=== PATIENT | male | born 1975 | race Caucasian/White ===

== ENCOUNTER 2019-07-28 12:40 | Inpatient (IN) ==
--- NOTE | 2019-07-28 13:06 | Emergency Department Note ---
History of Present Illness General Chief complaint: Mental Health Evaluation Stated complaint: MENTAL HEALTH EVAL Time Seen by Provider: 07/28/19 12:51 History of Present Illness Provider complaint: Mental health evaluation/suicidal ideation 44-year-old male presents emergency department with suicidal ideation. Patient states he wants to kill himself by either jumping in front of a car or jumping off of a bridge. He states he is been doing with mental health issues for many years but is gotten worse over the last few weeks. He states he has not taken any of his psychiatric medications for the last week since being discharged from the [facility] in [place]. He states there they change a lot of his medications and [place] He denies any drug or alcohol usage. He does report smoking tobacco. He notices decrease in his sleep, loss of interest in things a superiors given anthony, decreased energy, difficulties concentrating, and decreased appetite. He also reports he has been feeling guilty about how he has been feeling. Home Medications Home Medications Medication Instructions Recorded Confirmed Type No Known Home Medications 07/28/19 07/28/19 History Allergies Allergy/AdvReac Type Severity Reaction Status Date / Time No Known Allergies Allergy Unverified 07/28/19 13:20 Past Med/Surg History Medical History No pertinent past medical history Psychiatric hospitalisation Surgical History No pertinent past surgical history Social History Preferred Language: Greenlandic Communication Ability: Effective Beliefs That Will Affect Care: None Feels Safe at Home: Yes Smoking Status: Current some day smoker Tobacco Type: cigarettes ; Review of Systems A total of 10 systems reviewed and were otherwise negative Physical Exam Vital Signs Vital Signs - 24 hr 07/28/19 12:42 Temperature 36.7 C Temperature Source Oral Pulse Rate 89 Respiratory Rate 18 Respiratory Effort / Characteristics Non-Labored Spontaneous Respiratory Depth Normal Respiratory Pattern Regular Blood Pressure 137/92 Blood Pressure Mean 107 Pulse Oximetry 95 Oxygen Delivery Method Room Air Sepsis Recent Fever Within 48 Hours No Sepsis New/Unexplained Change in Mental Status No Sepsis Action Taken by Nursing No Action Required Physical Exam EYES: Conjunctivae and EOM are normal. Pupils are equal, round, and reactive to light. Right eye exhibits no discharge. Left eye exhibits no discharge. No scleral icterus. NECK: Normal range of motion. Neck supple. No JVD present. No spinous process tenderness present. No carotid bruit present. No rigidity. No tracheal deviation and normal range of motion present. No Brudzinski's sign and no Kernig's sign noted. PULM/CHEST: No respiratory distress ABD: The abdomen is soft. MUSC/SKEL: Normal range of motion. There is no peripheral edema, tenderness or deformity. LYMPH: No cervical adenopathy. NEURO: He is alert and oriented to person, place, and time. He has normal strength. No cranial nerve deficit or sensory deficit. Coordination and gait normal. GCS eye subscore is 4. GCS verbal subscore is 5. GCS motor subscore is 6. Cerebellar tests wnl. PSYCH: Positive for suicidal ideation. Course Course 1245: The patient was evaluated in room A6. A complete history and physical exam was performed. 1357: Vital signs stable. Patient medically clear at this time. Patient awaiting psychiatric evaluation and placement. Patient placed in observation. 1600: Patient admitted to 3 S. Medical Decision Making Laboratory Data Result diagrams: 07/28/19 13:07 07/28/19 13:07 Lab Results 07/28/19 07/28/19 07/28/19 Range/Units 13:02 13:02 13:07 WBC 8.55 (4.8-10.8) K/uL RBC 4.63 L (4.7-6.1) M/uL Hgb 13.5 L (14.0-18.0) g/dL Hct 39.6 L (42-52) % MCV 85.5 (80-100) fL MCH 29.2 (25-34) pg MCHC 34.1 (32-36) g/dL RDW Std Deviation 42.1 (36.4-46.3) fL RDW Coeff of Sherice 13.4 (11.5-14.5) % Plt Count 268 (130-400) K/uL MPV 9.2 (7.4-10.4) fL Immature Gran % (Auto) 0.2 % Neut % (Auto) 65.5 % Lymph % (Auto) 21.4 % [place] % (Auto) 10.6 % Eos % (Auto) 1.8 % Baso % (Auto) 0.5 % Immature Gran # (Auto) 0.02 (0.00-0.02) K/uL Neut # (Auto) 5.60 (1.4-6.5) K/uL Lymph # (Auto) 1.83 (1.2-3.4) K/uL [place] # (Auto) 0.91 H (0.11-0.59) K/uL Eos # (Auto) 0.15 (0-0.5) K/uL Baso # (Auto) 0.04 (0-0.2) K/uL Sodium (136-145) mmol/L Potassium (3.5-5.1) mmol/L Chloride (98-107) mmol/L Carbon Dioxide (21-32) mmol/L Anion Gap (3-11) BUN (7-18) mg/dl Creatinine (0.6-1.4) mg/dl Est Cr Clr Drug Dosing ml/min Est GFR ( Amer) Est GFR (Non-Af Amer) BUN/Creatinine Ratio (10-20) Glucose (70-99) mg/dl Calcium (8.5-10.1) mg/dl Total Bilirubin (0.2-1) mg/dl AST (15-37) U/L ALT (12-78) U/L Alkaline Phosphatase (45-117) U/L Total Protein (6.4-8.2) gm/dl Albumin (3.4-5.0) gm/dl Globulin (2.5-4.0) gm/dl Albumin/Globulin Ratio (0.9-2) TSH (0.300-4.500) uIu/ml Urine Color Yellow Urine Appearance Clear (Clear) Urine pH 5.5 (4.5-7.5) Ur Specific [place] 1.026 (1.000-1.030) Urine Protein Negative (Negative) Urine Glucose (UA) Negative (Negative) Urine Ketones Trace H (Negative) Urine Blood Negative (Negative) Urine Nitrite Negative (Negative) Urine Bilirubin Negative (Negative) Urine Urobilinogen Negative (Negative) Ur Leukocyte Esterase Negative (Negative) Salicylates (2.8-20) mg/dl Urine Opiates Screen Neg (Neg) Ur Methadone, Qual Neg (Neg) Acetaminophen (10-30) ug/ml Urine Barbiturates Neg (Neg) Ur Phencyclidine (PCP) Neg (Neg) U Amphetamin/Meth Scrn Neg (Neg) MDMA (Ecstasy) Screen Neg (Neg) U Benzodiazepines Scrn Neg (Neg) Ur Cocaine Metabolite Neg (Neg) U Marijuana (THC) Screen Neg (Neg) Ethyl Alcohol mg/dL (0-3) mg/dl 07/28/19 07/28/19 07/28/19 Range/Units 13:07 13:07 13:07 WBC (4.8-10.8) K/uL RBC (4.7-6.1) M/uL Hgb (14.0-18.0) g/dL Hct (42-52) % MCV (80-100) fL MCH (25-34) pg MCHC (32-36) g/dL RDW Std Deviation (36.4-46.3) fL RDW Coeff of Sherice (11.5-14.5) % Plt Count (130-400) K/uL MPV (7.4-10.4) fL Immature Gran % (Auto) % Neut % (Auto) % Lymph % (Auto) % [place] % (Auto) % Eos % (Auto) % Baso % (Auto) % Immature Gran # (Auto) (0.00-0.02) K/uL Neut # (Auto) (1.4-6.5) K/uL Lymph # (Auto) (1.2-3.4) K/uL [place] # (Auto) (0.11-0.59) K/uL Eos # (Auto) (0-0.5) K/uL Baso # (Auto) (0-0.2) K/uL Sodium 139 (136-145) mmol/L Potassium 3.9 (3.5-5.1) mmol/L Chloride 109 H (98-107) mmol/L Carbon Dioxide 25 (21-32) mmol/L Anion Gap 5.0 (3-11) BUN 22 H (7-18) mg/dl Creatinine 0.85 (0.6-1.4) mg/dl Est Cr Clr Drug Dosing 114.7 ml/min Est GFR ( Amer) 124.6 Est GFR (Non-Af Amer) 107.5 BUN/Creatinine Ratio 25.5 H (10-20) Glucose 121 H (70-99) mg/dl Calcium 8.6 (8.5-10.1) mg/dl Total Bilirubin 0.4 (0.2-1) mg/dl AST 49 H (15-37) U/L ALT 26 (12-78) U/L Alkaline Phosphatase 77 (45-117) U/L Total Protein 7.4 (6.4-8.2) gm/dl Albumin 3.8 (3.4-5.0) gm/dl Globulin 3.6 (2.5-4.0) gm/dl Albumin/Globulin Ratio 1.1 (0.9-2) TSH 0.490 (0.300-4.500) uIu/ml Urine Color Urine Appearance (Clear) Urine pH (4.5-7.5) Ur Specific [place] (1.000-1.030) Urine Protein (Negative) Urine Glucose (UA) (Negative) Urine Ketones (Negative) Urine Blood (Negative) Urine Nitrite (Negative) Urine Bilirubin (Negative) Urine Urobilinogen (Negative) Ur Leukocyte Esterase (Negative) Salicylates 4.3 (2.8-20) mg/dl Urine Opiates Screen (Neg) Ur Methadone, Qual (Neg) Acetaminophen < 2 L (10-30) ug/ml Urine Barbiturates (Neg) Ur Phencyclidine (PCP) (Neg) U Amphetamin/Meth Scrn (Neg) MDMA (Ecstasy) Screen (Neg) U Benzodiazepines Scrn (Neg) Ur Cocaine Metabolite (Neg) U Marijuana (THC) Screen (Neg) Ethyl Alcohol mg/dL < 3.0 (0-3) mg/dl MDM Narrative Observation note Indication: Psychiatric evaluation/placement Patient, with history of recently being discharged from psychiatric facility in [place] was first seen at 1245 hrs and the observation time began at 1357 hrs and was necessary in order to determine psychiatric evaluation/placement. Upon re-evaluation, 2 hours and 3 minutes of observation revealed that the patient should be admitted for inpatient psychiatric care. Disposition date and time July 28, 2019 1600. Impression & Plan Depression with suicidal ideation Discharge Plan Visit Data *Final* Discharge Date/Time: 07/28/19 16:43 Chief Complaint: Mental Health Evaluation Stated Complaint: MENTAL HEALTH EVAL ED Provider: Brad Harmon Discharge Problem: Depression with suicidal ideation Patient Disposition: Admitted As Inpatient Discharge Instructions Interventions: ED Discharge Assessment Last Done: 07/28/19 16:43
[2019-07-28 13:14] LABS: Appearance Urine Clear (Clear); Bilirubin Urine Negative (Negative); Blood Urine Negative (Negative); Color Urine Yellow; Glucose Urine UA Negative (Negative); Ketones Urine Trace (Negative); Leukocyte Esterase Urine Negative (Negative); Nitrite Urine Negative (Negative); Protein Urine Negative (Negative); Specific Gravity Urine 1.026 (1.000-1.030); Urobilinogen Urine Negative (Negative); pH Urine 5.5 (4.5-7.5)
[2019-07-28 13:21] LABS: Basophils # (auto) 0.04 K/uL (0-0.2); Basophils % (auto) 0.5 %; Eosinophils # (auto) 0.15 K/uL (0-0.5); Eosinophils % (auto) 1.8 %; Hematocrit (blood only) 39.6 % (42-52); Hemoglobin 13.5 g/dL (14.0-18.0); Immature Granulocytes # (auto) 0.02 K/uL (0.00-0.02); Immature Granulocytes % (auto) 0.2 %; Lymphocytes # (auto) 1.83 K/uL (1.2-3.4); Lymphocytes % (auto) 21.4 %; Mean Corpuscular Hemoglobin 29.2 pg (25-34); Mean Corpuscular Hgb Conc 34.1 g/dL (32-36); Mean Corpuscular Volume 85.5 fL (80-100); Mean Platelet Volume 9.2 fL (7.4-10.4); Monocytes # (auto) 0.91 K/uL (0.11-0.59); Monocytes % (auto) 10.6 %; Neutrophils % (auto) 65.5 %; Platelet Count 268 K/uL (130-400); RDW Coefficient of Variation 13.4 % (11.5-14.5); RDW Standard Deviation 42.1 fL (36.4-46.3); Red Blood Count 4.63 M/uL (4.7-6.1); White Blood Count 8.55 K/uL (4.8-10.8)
[2019-07-28 13:43] LABS: Albumin Level 3.8 gm/dl (3.4-5.0); BUN Creatinine Ratio 25.5 (10-20); Calcium 8.6 mg/dl (8.5-10.1); Creatinine Clr Calc Pharmacy 114.7 ml/min; Est GFR (African American) 124.6; Est GFR (Non-African American) 107.5; Potassium 3.9 mmol/L (3.5-5.1)
[2019-07-28 13:48] LABS: Amphetamines+Metham, Urine Neg (Neg); Barbiturates, Urine Neg (Neg); Benzodiazepine, Urine Neg (Neg); Cocaine, Urine Neg (Neg); MDMA (Ecstacy), Urine Neg (Neg); Methadone, Urine Neg (Neg); Opiate, Urine Neg (Neg); Phencyclidine, Urine Neg (Neg)
[2019-07-28 13:53] LABS: Albumin Globulin Ratio 1.1 (0.9-2); Bilirubin,Total 0.4 mg/dl (0.2-1); Globulin 3.6 gm/dl (2.5-4.0); Thyroid Stimulating Hormone 0.49 uIu/ml (0.300-4.500); Total Protein 7.4 gm/dl (6.4-8.2)
[2019-07-28 13:55] LABS: Acetaminophen < 2 ug/ml (10-30)
[2019-07-28 13:56] LABS: Salicylate 4.3 mg/dl (2.8-20)
[2019-07-28] MEDS ORDERED: MAGNESIUM HYDROXIDE SUSP 30 ML UDC PO PRN (15:05)
[2019-07-28] MEDS ORDERED: BISMUTH SUBSALICYLATE PER ML OMNICELL CHARGE PO PRN (15:05)
[2019-07-28] MEDS ORDERED: SODIUM CHLORIDE 0.65% NA SOLN 45 ML (OCEAN) PRN (15:05)
[2019-07-29] MEDS: NICOTINE POLACRILEX 2 MG GUM MT PRN ×4 (09:38→18:07)
--- NOTE | 2019-07-29 13:32 | History & Physical ---
Date of Service July 29, 2019 Impression / Recommendations Impression The patient acknowledges that, in the past, he has been given a diagnosis of bipolar disorder and, in addition, he describes trials of various mood stabilizing agents, including lithium carbonate, in the past. Currently, he presents with mixed symptoms that include delusional grandiosity (he believes that the sentient beings have specifically selected him because of his special abilities and talents), pressured speech, flight of ideas, diminished concentration, and poor sleep. His affect is also expansive and irritable, but is also quite labile and he is tearful periodically. At the same time, and somewhat paradoxically, he complains of decreased energy (something that he says is chronic), anhedonia, and apathy. (1) Bipolar 1 disorder, mixed: 07/29/2019. -The patient [facility]. -He is being observed on suicide precautions. -The patient is being encouraged to participate in individual, group, and activity therapies as a way of improving his coping strategies. -Begin Zyprexa 10 mg at bedtime. Material risks and anticipated benefits of Zyprexa, including, but not limited to metabolic syndrome and its components were reviewed with the patient and he indicated understanding. 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 However, he does freely acknowledges that he has a long history of the abuse of multiple ch emical substances. He tells us that his drug of choice is heroin, but he is also abused stimulants such as methamphetamine and cocaine, as well as marijuana, hallucinogens and others. -Today, he voices an intent to maintain abstinence from drugs of abuse, but then rationalizes his use by saying "if you were going through the things I go through you would use drugs to!" -We will provide chemical dependency education services during the hospital, and will consider this need as part of our ongoing aftercare planning. Present on Admission?: Yes (3) Suicidal ideations: 07/29/2019 -Patient reports that he has had thoughts of jumping in front of a car or jumping off a bridge as a way of ending the "torture" that he feels that he is experiencing as a function of his delusions. -Today, he expresses some ambivalence about being suicidal and now seems to be talking about it as something that he might resort to in the not too distant future if his circumstances do not improve. -At this point, inpatient psychiatric hospitalization is the least intensive and least restrictive level of care consistent with the patient's clinical safety needs. There is a past history of suicide attempts, and the patient's emotional lability coupled with the degree to which he is clearly distressed by his belief that he has been continuously harassed and exploited by sentient insect, under the control of an "evil mastermind" currently places him at imminent risk outside the safety and structure of a psychiatric hospital setting. Present on Admission?: Yes Inventory Assets Strengths: Patient states that he is willing to cooperate with treatment. There is some evidence that the patient may have responded favorably to psychiatric treatment in the past. Needs: Sustained abstinence from alcohol and other drugs. Adherence with psychiatric treatment on an outpatient basis. Improved social supports. Risk Factors Assessment Psychotic illness. Psychiatric diagnoses. History of past suicide attempts. Drug abuse. Limited support network. Male: Yes : Yes Do You Have Access To A Gun?: No Health Problems: No Mental Health Diagnoses: Yes Substance Use Disorders: Yes Previous Attempt: Yes Previous Attempt; Highly Lethal: No Previous Attempt; Planned: No Previous Attempt; Didn't Tell Anyone: Yes Family History of Suicide: No Previous Psychiatric Hospitalization: Yes Hopelessness: No Smoker: Yes Protective Factors Assessment [employer]an Beliefs: No : No Responsible for Young Children: No Employed: No Stable Relationships: No Supportive Family: No (Patient indicates that he had formerly lived with his mother and paternal grandfather, but indicates today that they were not supportive) Good Rapport with Provider: No Absence of Any Risk Factors Above: No Psychiatric History Identifying Data YAO OH is a 44-year-old M who currently is homeless and arrived in [place] by bus. He has a self-reported history of bipolar disorder, and was admitted on 07/28/19 15:05 on a 201 voluntary agreement because of psychosis and suicidal ideations. Chief Complaint " You do want to kill yourself too if you had insects biting you and sucking the life out of you!". History of Present Illness The patient is a 44-year-old male present presented to the emergency department, apparently after alighting from a long distance bus in [place] while en r oute to an unspecified destination. Reportedly, the patient's behavior on the bus had been such that other persons on the bus were concerned, and the patient was brought to the emergency department at [facility] for a psychiatric evaluation. In the emergency room, the patient reportedly expressed suicidal thoughts that included his either jumping in front of a car or jumping off a bridge. He stated that he has been dealing with mental health issues for many years and that his emotional stress has gotten worse over the last few weeks. The patient also reports that he has not taken any of his psychiatric medications for the last week since being discharged from a chemical dependency long term house known as the [facility] in [place]. The patient's claim is that he was released from the program and was "put on a bus" that he believes was [place] him [place] "[place]". He denies any recent drug or alcohol usage, but freely acknowledges a longstanding history of the abuse of a number of chemical substances, including heroin, cocaine, methamphetamine, hallucinogens, and other drugs of abuse. Patient also reports that he has, in the past, been given a diagnosis of bipolar disorder and has a history of multiple psychiatric hospitalizations, according to the patient. He does report smoking tobacco. His primary complaint is that, for the past 2 years or more he has been "infested" by sentient insects that he describes as conspiring, under the direction of a "mastermind" to infest him, bite him continuously throughout his body, and suck his blood and "life force" out of him. More specifically, of the patient says that these bugs can choose to be invisible, may originally resemble a larva, and then take a number of different forms. He says that he has never seen one, but believes that all of the insects in question are female. The patient attributes the current COVID-19 pandemic to these same malevolent insects, and that COVID-19 patients are not actually dying of pneumonia but, instead, infestation by these sentient insects who, among other things, enter the lungs of persons diagnosed with COVID-19 through the nasal cavities and block off the airways so that the victim " is a horrible ." Patient further believes that there was come until fairly recently, and insect who had taken pity on him and had tried to protect him from the other insects. He tells us that the protective insect was named "Micheline," but she and he is no longer able to enjoy her protection. The patient reports decreased sleep that he a ttributes to being continuously bitten and threatened by the insects, low energy and fatigue that he attributes to having his blood sucked by the insect (although, he also says that he has always had difficulty with fatigue and low energy; i.e., for most of his life). He also complains of poor appetite, anhedonia, apathy, and poor concentration. The patient's toxicology screen at the time of admission was negative for drugs of abuse. His reported that he has not been using drugs recently, and when asked specifically about synthetic drugs that might not appear on a tox screen, the patient assured us that he has not used any drugs at all. Past Psychiatric History Previous Psych History: The patient is a vague historian. He tells us that he has had multiple psychiatric hospitalizations, but declines to say where or when. He also declines to describe the circumstances that have led to psychiatric hospitalizations in the past. Further, he reports a history of multiple stays and chemical dependency rehabilitation programs. The patient psychiatric history is complicated by a co-occurring history of the abuse of a number of mood altering chemical substances. He says that his [id number] is heroin, but he also abuses cocaine, methamphetamines, marijuana, hallucinogens, and "just about anything you can name." As noted above, his toxicology screen at admission was negative for drugs of abuse, but he is currently presenting with fairly florid psychiatric symptoms. Current Psychiatric Diagnosis: Bipolar Outpatient Services: Patient reports previous contact the psychiatric community and notes that he has seen mental health professionals on an outpatient basis in the past, but says that he cannot recall when or where. Previous Psych Admissions: As above, the patient reports that he has had multiple psychiatric hospitalizations but either cannot or will not say when, where, or why. He also reports a history of multiple chemical dependency residential treatment programs and, in fact, indicates that he had recently been released from a residential chemical dependency long term house or half-way in [place], [place]. Do You Have Access To A Gun?: No History of Previous Suicide Attempt: Yes Describe Attempts in the Past: Overdose Past Medication Trials: The patient says that he has been on many psychiatric medications but has trouble recalling the names. He notes that he has taken Depakote, lithium, quetiapine (which he found overly sedating) and "maybe" risperidone. He does not believe that he is ever taken olanzapine, paliperidone, or ziprasidone. Past Head Trauma/Neuro History History of Concussion/Seizure: No Allergies Allergy/AdvReac Type Severity Reaction Status Date / Time No Known Allergies Allergy Unverified 07/28/19 13:20 Home Medications Home Medications Medication Instructions Recorded Confirmed Type No Known Home Medications 07/28/19 07/28/19 History Family History Family History of: Doesn't Know Family Mental Health History Comment: The patient states vaguely that his mother is "a nut job," but otherwise does not elaborate. Alcohol History Hx of Alcohol Use Over the Past 12 Months: No AUDIT Total Score: 0 Smoking Use Have You Smoked or Used Tobacco Products in the Last 30 Days: Yes tobacco type: cigarettes Smoking Status: Current some day smoker Substance History Hx of Prescription Med Misuse Over the Past 12 Months: No Hx of Over the Counter Med Misuse Over the Past 12 Months: No Hx of Inhalent Misuse Over the Past 12 Months: No Hx of Organic Substance Use Over the Past 12 Months: Yes (heroin use until 06/09 when he went to rehab) Hx of Illegal Substances/Street Drug Use Over Past 12 Months: Yes (meth use until 06/09 when he went to rehab) Problems as a Result of Past Substance Use: Other Problems as a Result of Past Substance Use Comments: loss of housing Personal History Living Arrangements: Homeless Highest Grade Completed: G.E.D. Marital Status: Number Of Children: 2 adult children with whom he has no contact. Beliefs That Will Affect Care: None Current Legal Problems: No Hx Legal Problems: Yes (Does not elaborate) Patient History Medical History No pertinent past medical history Psychiatric hospitalisation Surgical History No pertinent past surgical history Social History Preferred Language: Nepali Communication Ability: Effective Beliefs That Will Affect Care: None Feels Safe at Home: Yes Smoking Status: Current some day smoker Tobacco Type: cigarettes ; Review of Systems Review of Systems: All systems reviewed & are unremarkable except as noted in HPI & below The somatic history, review of systems, and physical examination completed by Brad Harmon of the emergency department shortly prior to admission has been reviewed and is excepted for purposes of medical clearance to the behavioral health unit. Physical Exam Psychiatric: Orientation: alert, oriented x 3 and cooperative Apperance: + disheveled Eye Contact: + fair eye contact Motor Behavior: + psychomotor agitation Speech: + pressured speech Affect: + labile affect The patient registered anger, mirth, and sadness (with tearfulness) and rapid succession. Mood: + angry mood Thought Process: + flight of ideas Thought Content: + delusions (Patient voices a fairly elaborate delusional system involving parasitosis by sentient "all female" insects that are directed by a remote "mastermind.") The patient's elaborate delusional system includes a belief that the sentient insects that are targeting him are careful to only target persons who are unlikely to be believed when they report infestation. For example, he turned to the financial services assistant and said, "they want infect you because you would do something about it and people would believe you if you told him what was happening. I think the bugs think it is funny to watch me try to get people to believe me, and they think it is interesting to see what kind of response all have when no one does." The patient reports that he has had thoughts of killing himself because he feels that he can no longer stand being harassed and tortured by the above referenced insects. He notes that he is able to contract for safety in the hospital and will cooperate with treatment as we attempt to rid him what he believes is the primary problem; i.e. that he is being consciously targeted by and tortured by insects. Estimated Intelligence: average estimated intelligence Insight: + severely impaired insight Judgement: + poor judgement Vital Signs (Past 24 Hours): Last Vital Signs Temp 36.6 C 07/29/19 06:00 Pulse 72 07/29/19 06:42 Resp 17 07/29/19 06:00 BP 136/82 07/29/19 06:42 Pulse Ox 95 07/28/19 17:40 Results & Data ([facility]) Laboratory Results Laboratory Results - last 24 hr 07/28/19 07/28/19 07/28/19 13:02 13:07 13:07 Sodium 139 Potassium 3.9 Chloride 109 H Carbon Dioxide 25 Anion Gap 5.0 BUN 22 H Creatinine 0.85 Est Cr Clr Drug Dosing 114.7 Est GFR ( Amer) 124.6 Est GFR (Non-Af Amer) 107.5 BUN/Creatinine Ratio 25.5 H Glucose 121 H Calcium 8.6 Total Bilirubin 0.4 AST 49 H ALT 26 Alkaline Phosphatase 77 Total Protein 7.4 Albumin 3.8 Globulin 3.6 Albumin/Globulin Ratio 1.1 TSH 0.490 Salicylates 4.3 Urine Opiates Screen Neg Ur Methadone, Qual Neg Acetaminophen < 2 L Urine Barbiturates Neg Ur Phencyclidine (PCP) Neg U Amphetamin/Meth Scrn Neg MDMA (Ecstasy) Screen Neg U Benzodiazepines Scrn Neg Ur Cocaine Metabolite Neg U Marijuana (THC) Screen Neg Ethyl Alcohol mg/dL 07/28/19 13:07 Sodium Potassium Chloride Carbon Dioxide Anion Gap BUN Creatinine Est Cr Clr Drug Dosing Est GFR ( Amer) Est GFR (Non-Af Amer) BUN/Creatinine Ratio Glucose Calcium Total Bilirubin AST ALT Alkaline Phosphatase Total Protein Albumin Globulin Albumin/Globulin Ratio TSH Salicylates Urine Opiates Screen Ur Methadone, Qual Acetaminophen Urine Barbiturates Ur Phencyclidine (PCP) U Amphetamin/Meth Scrn MDMA (Ecstasy) Screen U Benzodiazepines Scrn Ur Cocaine Metabolite U Marijuana (THC) Screen Ethyl Alcohol mg/dL < 3.0 Current Inpatient Medications Current Inpatient Medications: Current Inpatient Medications Acetaminophen (Tylenol) 650 mg PO Q4H PRN PRN Reason: Headache or Minor Fever Stop: 08/27/19 15:04 Al Hydrox/Mg Hydrox/Simethicone (Maalox) 30 ml PO Q4H PRN PRN Reason: GI Upset Stop: 08/27/19 15:04 Bismuth Subsalicylate (Kaopectate) 15 ml PO PRN PRN PRN Reason: Loose Stool Stop: 08/27/19 15:04 Haloperidol (Haldol) 5 mg PO Q6 PRN PRN Reason: psychosis/agitation Stop: 08/27/19 15:34 Hydroxyzine HCl (Vistaril) 25 mg PO Q4H PRN PRN Reason: Anxiety Stop: 08/27/19 15:04 Hydroxyzine HCl (Vistaril) 50 mg PO HSZ PRN PRN Reason: Insomnia Stop: 08/27/19 15:04 Magnesium Hydroxide (Milk Of Magnesia) 30 ml PO DAILY PRN PRN Reason: Constipation Stop: 08/27/19 15:04 Nicotine Polacrilex (Nicorette 2mg) 1 piece MT PRN PRN PRN Reason: nicotine cravings Stop: 08/27/19 16:28 Last Admin: 07/29/19 09:38 Dose: 1 piece Documented by: Sodium Chloride ([place] Nasal) 1 - 2 sprays NA PRN PRN PRN Reason: Nasal Dryness/Congestion Stop: 08/27/19 15:04
[2019-07-29] MEDS: haloperidoL 5 MG TAB PO PRN (18:07)
[2019-07-29] MEDS: ACETAMINOPHEN 325 MG TAB PO PRN (18:08)
[2019-07-29] MEDS ORDERED: OLANZAPINE ZYDIS 10 MG ORALLY DIS. TAB PO SCH (22:00)
[2019-07-30] MEDS: ACETAMINOPHEN 325 MG TAB PO PRN (01:58)
--- NOTE | 2019-07-30 07:08 | Psychiatric Progress Note ---
Date of Service July 30, 2019 Impression / Recommendations Impression 44-year-old male with a history of bipolar disorder and substance abuse who left his senior care house on a bus and presented with mixed symptoms and psychosis. He reports no drug use in months, but we do not have collateral information to confirm recent events/symptoms. He describes delusions involving alien insects that he believes are causing coronavirus, and states this has been going on for 2 years. He signed in voluntarily, and was started on olanzapine for both mood and psychotic symptoms. He is floridly psychotic and remains suicidal. (1) Bipolar 1 disorder, mixed: 07/29/2019. -The patient [facility]. -He is being observed on suicide precautions. -The patient is being encouraged to participate in individual, group, and activity therapies as a way of improving his coping strategies. -Begin Zyprexa 10 mg at bedtime. Material risks and anticipated benefits of Zyprexa, including, but not limited to metabolic syndrome and its components were reviewed with the patient and he indicated understanding. 07/29 -Increase olanzapine to 15 mg at bedtime, and add a as needed dose. FLP and FG ordered tomorrow for monitoring on an atypical antipsychotic. -Attempt to get collateral information, either from family or senior care house staff. Unclear if he has outpatient providers. -Continue private room due to psychosis. May attend groups as able to tolerate. -History of violence with active felony aggravated assault charges, as well as simple assault and harassment. We will attempt to coordinate with his director wholesale, as he missed a court date recently. (2) Substance abuse: 07/29/2019 -The patient is not considered to be a fully reliable law reporter. However, he does freely acknowledges that he has a long history of the abuse of multiple chemical substances. He tells us that his drug of choice is heroin, but he is also abused stimulants such as methamphetamine and cocaine, as well as marijuana, hallucinogens and others. -Today, he voices an intent to maintain abstinence from drugs of abuse, but then rationalizes his use by saying "if you were going through the things I go through you would use drugs to!" -We will provide chemical dependency education services during the hospital, and will consider this need as part of our ongoing aftercare planning. (3) Suicidal ideations: 07/29/2019 -Patient reports that he has had thoughts of jumping in front of a car or jumping off a bridge as a way of ending the "torture" that he feels that he is experiencing as a function of his delusions. -Today, he expresses some ambivalence about being suicidal and now seems to be talking about it as something that he might resort to in the not too distant future if his circumstances do not improve. -At this point, inpatient psychiatric hospitalization is the least intensive and least restrictive level of care consistent with the patient's clinical safety needs. There is a past history of suicide attempts, and the patient's emotional lability coupled with the degree to which he is clearly distressed by his belief that he has been continuously harassed and exploited by sentient insect, under the control of an "evil mastermind" currently places him at imminent risk outside the safety and structure of a psychiatric hospital setting. Inventory Assets Strengths: Patient states that he is willing to cooperate with treatment. There is some evidence that the patient may have responded favorably to psychiatric treatment in the past. Needs: Sustained abstinence from alcohol and other drugs. Adherence with psychiatric treatment on an outpatient basis. Improved social supports. Risk Factors Assessment Male: Yes : Yes Do You Have Access To A Gun?: No Health Problems: No Mental Health Diagnoses: Yes Substance Use Disorders: Yes Previous Attempt: Yes Previous Attempt; Highly Lethal: No Previous Attempt; Planned: No Previous Attempt; Didn't Tell Anyone: Yes Family History of Suicide: No Previous Psychiatric Hospitalization: Yes Hopelessness: No Smoker: Yes Protective Factors Assessment Mu-Ism Beliefs: No : No Responsible for Young Children: No Employed: No Stable Relationships: No Supportive Family: No (Patient indicates that he had formerly lived with his mother and paternal grandfather, but indicates today that they were not supportive) Good Rapport with Provider: No Absence of Any Risk Factors Above: No Interval History Identifying Information YAO HO is a 44-year-old M who currently is homeless and arrived in [place] by bus. He has a self-reported history of bipolar disorder, and was admitted on 07/28/19 15:05 on a 201 voluntary agreement because of psychosis and suicidal ideations. Chief Complaint "I'm here". Review of Systems Sleep Information Total Hours of Sleep: 3.5 Sleep Comments: Yao was awake from [id number]. he was offered a repeat of HS vistaril and asked to come to the nurses station to get it if wanted. he remained awake in bed till he came out around 0200 to get something for pain in his R shoulder. he was medicated with tylenol and accepted his repeat prn vistaril for sleep aid after stating he was not sleepy. Meal Information Percent Meal Consumed - Breakfast: 100 Percent Meal Consumed - Lunch: 50 Percent Meal Consumed - Dinner: 100 Subjective Subjective Patient was seen & assessed and interval progress reviewed with nursing and social work. Staff report he remains flordily psychotic, focused on the alien insect beings that he believes are part of a vast conspiracy that are causing the coronavirus pandemic. He states that he can feel the bugs biting him, and he leaves it is his responsibility to "make people see the truth," and is upset that "everyone thinks I am crazy." He says that he has been dealing with these bugs for 2 years, that they paulette into his skin and suck his blood. He received multiple as needed medications, including 5 mg haloperidol, multiple doses of hydroxyzine, acetaminophen, and nicotine gum, in addition to his scheduled olanzapine 10 mg at bedtime. He slept poorly overnight, only 3.5 hours. This morning he got up and ate some breakfast, but then returned to bed. He is not attending groups. On my assessment he was seen in his room, where he initially kept his face covered with a blanket, but eventually remove the blanket and sat up. He states he continues to be tortured by alien, parasitic insects that he believes come from another dimension, and that he can feel them biting him and sucking out his blood, which causes him to have poor energy. He thinks that this is why people in our country craves sugar, because parasites are sucking their blood, stating that this is happening to everyone, not just him, but other people are not aware of it. He repeatedly states that no one believes him, and everyone thinks he is crazy, which is very upsetting to him. He says "I guarantee you this virus (coronavirus) is caused by a bite, remember a couple of years ago when a ton of birds fell out of the radha? Now things are starting to make sense." He says he is from [place], [place], in [facility], and that his grandfather lives there. He was actually on his way to his grandfather's house by bus when he ended up here. He states that he went to detox in [place], from there went to inpatient rehab in [place], and then to a senior care house in [place]. He took a bus from [place] to [place] with intent to continue on to [facility], but when he arrived in [place], he states that there were no buses leaving the station. He further states that his mother, with whom he has a very poor relationship, is now staying at his grandfather's house, and so he does not want to go there because she is there. He further states his grandfather is very ill and dying. He cannot identify any other supports, stating that he has a brother, but does not know where he is, "he's a bum." He states that he has not used any drugs for months since he went to rehab. He states he is completely overwhelmed by the alien parasites, and that he cannot go on living like this, stating he would rather end his lif and continue to be tortured. He endorses suicidal thoughts with a plan to walk into traffic, but feels safe here, and states that he is getting some relief from his symptoms in the hospital, "but when I leave, it's going to be 100 times worse." He admits he was diagnosed with bipolar disorder in the past, but does not really believe he has it, stating it is probably a result of the alien insects. Physical Exam Psychiatric Orientation: alert and cooperative Apperance: appropriately dressed and + disheveled Tall thin male appearing older than stated age, long, unkempt hair and facial hair. Initially lying in bed with the blankets pulled over his face, but later sits up. Eye Contact: + poor eye contact Motor Behavior: steady gait and station and + psychomotor agitation (Pacing) Hyperverbal, loud Affect: + irritable affect and mood congruent with affect Distraught "Not good." Thought Process: + perseveration (On delusions of persecution/infestation) Thought Content: + paranoid, + delusions and + persecution Suicidal Thoughts: + reports suicidal thoughts Plan to walk into traffic, denies intent to harm self in the hospital. Homicidal Thoughts: denies homicidal thoughts Hallucinations: + tactile hallucinations (Bugs biting him) Cognition: attention grossly intact and language grossly intact Insight: + impaired insight Judgement: + impaired judgement Vital Signs (Past 24 Hours) Last Vital Signs Temp 36.3 C L 07/30/19 06:35 Pulse 64 07/30/19 06:36 Resp 18 07/30/19 06:35 BP 128/79 07/30/19 06:36 Pulse Ox 95 07/28/19 17:40 Results & Data ([facility]) Current Inpatient Medications Current Inpatient Medications: Current Inpatient Medications Acetaminophen (Tylenol) 650 mg PO Q4H PRN PRN Reason: Headache or Minor Fever Stop: 08/27/19 15:04 Last Admin: 07/30/19 01:58 Dose: 650 mg Documented by: Al Hydrox/Mg Hydrox/Simethicone (Maalox) 30 ml PO Q4H PRN PRN Reason: GI Upset Stop: 08/27/19 15:04 Bismuth Subsalicylate (Kaopectate) 15 ml PO PRN PRN PRN Reason: Loose Stool Stop: 08/27/19 15:04 Haloperidol (Haldol) 5 mg PO Q6 PRN PRN Reason: psychosis/agitation Stop: 08/27/19 15:34 Last Admin: 07/29/19 18:07 Dose: 5 mg Documented by: Hydroxyzine HCl (Vistaril) 25 mg PO Q4H PRN PRN Reason: Anxiety Stop: 08/27/19 15:04 Last Admin: 07/29/19 16:46 Dose: 25 mg Documented by: Hydroxyzine HCl (Vistaril) 50 mg PO HSZ PRN PRN Reason: Insomnia Stop: 08/27/19 15:04 Last Admin: 07/30/19 01:58 Dose: 50 mg Documented by: Magnesium Hydroxide (Milk Of Magnesia) 30 ml PO DAILY PRN PRN Reason: Constipation Stop: 08/27/19 15:04 Nicotine Polacrilex (Nicorette 2mg) 1 piece MT PRN PRN PRN Reason: nicotine cravings Stop: 08/27/19 16:28 Last Admin: 07/29/19 18:07 Dose: 1 piece Documented by: Olanzapine (Zyprexa Zydis Od) 10 mg PO HS SUZI Stop: 08/28/19 21:59 Last Admin: 07/29/19 21:17 Dose: 10 mg Documented by: Sodium Chloride (Mcgraw Nasal) 1 - 2 sprays NA PRN PRN PRN Reason: Nasal Dryness/Congestion Stop: 08/27/19 15:04 Mental Health & Subst Abuse Tx Therapist Name of Therapist: None Telephone Lineworker Name of Telephone Lineworker: None Post Discharge Appointments Primary Care Physician Name Of Family Doctor: None Contact Information Contact Information Comment: Permanent address: [address] [place] [id number]
[2019-07-30] MEDS: NICOTINE POLACRILEX 2 MG GUM MT PRN ×6 (09:03→21:22)
[2019-07-30] MEDS: OLANZAPINE ZYDIS 5 MG ORALLY DIS. TAB PO SCH (21:22)
[2019-07-31] MEDS: OLANZAPINE ZYDIS 5 MG ORALLY DIS. TAB PO PRN ×4 (03:44→19:45)
[2019-07-31] MEDS: ACETAMINOPHEN 325 MG TAB PO PRN ×2 (03:45→21:58)
--- NOTE | 2019-07-31 06:42 | Psychiatric Progress Note ---
Date of Service July 31, 2019 Impression / Recommendations Impression 44-year-old male with a history of bipolar disorder and substance abuse who left his detention house on a bus and presented with mixed symptoms and psychosis. He reports no drug use in months, but we do not have collateral information to confirm recent events/symptoms. He describes delusions involving alien insects that he believes are causing coronavirus, and states this has been going on for 2 years. He signed in voluntarily, and was started on olanzapine for both mood and psychotic symptoms. He is floridly psychotic and remains suicidal. (1) Bipolar 1 disorder, mixed: 07/29/2019 -The patient was admitted to the [facility] at [facility]. -He is being observed on suicide precautions. -The patient is being encouraged to participate in individual, group, and activity therapies as a way of improving his coping strategies. -Begin Zyprexa 10 mg at bedtime. Material risks and anticipated benefits of Zyprexa, including, but not limited to metabolic syndrome and its components were reviewed with the patient and he indicated understanding. 07/29 -Increase olanzapine to 15 mg at bedtime, and add a as needed dose. FLP and FG ordered tomorrow for monitoring on an atypical antipsychotic. -Attempt to get collateral information, either from family or detention house staff. Unclear if he has outpatient providers. -Continue private room due to psychosis. May attend groups as able to tolerate. -History of violence with active felony aggravated assault charges, as well as simple assault and harassment. We will attempt to coordinate with his softball umpire, as he missed a court date recently. 07/30 -Continue olanzapine; FG 105, FLP normal. (2) Substance abuse: 07/29/2019 -The patient is not considered to be a fully reliable marine reporter. However, he does freely acknowledges that he has a long history of the abuse of multiple chemical substances. He tells us that his drug of choice is heroin, but he is also abused stimulants such as methamphetamine and cocaine, as well as marijuana, hallucinogens and others. -Today, he voices an intent to maintain abstinence from drugs of abuse, but then rationalizes his use by saying "if you were going through the things I go through you would use drugs to!" -We will provide chemical dependency education services during the hospital, and will consider this need as part of our ongoing aftercare planning. (3) Suicidal ideations: 07/29/2019 -Patient reports that he has had thoughts of jumping in front of a car or jumping off a bridge as a way of ending the "torture" that he feels that he is experiencing as a function of his delusions. -Today, he expresses some ambivalence about being suicidal and now seems to be talking about it as something that he might resort to in the not too distant future if his circumstances do not improve. -At this point, inpatient psychiatric hospitalization is the least intensive and least restrictive level of care consistent with the patient's clinical safety needs. There is a past history of suicide attempts, and the patient's emotional lability coupled with the degree to which he is clearly distressed by his belief that he has been continuously harassed and exploited by sentient insect, under the control of an "evil mastermind" currently places him at imminent risk outside the safety and structure of a psychiatric hospital setting. Inventory Assets Strengths: Patient states that he is willing to cooperate with treatment. There is some evidence that the patient may have responded favorably to psychiatric treatment in the past. Needs: Sustained abstinence from alcohol and other drugs. Adherence with psychiatric treatment on an outpatient basis. Improved social supports. Risk Factors Assessment Male: Yes : Yes Do You Have Access To A Gun?: No Health Problems: No Mental Health Diagnoses: Yes Substance Use Disorders: Yes Previous Attempt: Yes Previous Attempt; Highly Lethal: No Previous Attempt; Planned: No Previous Attempt; Didn't Tell Anyone: Yes Family History of Suicide: No Previous Psychiatric Hospitalization: Yes Hopelessness: No Smoker: Yes Protective Factors Assessment Jainism Beliefs: No : No Responsible for Young Children: No Employed: No Stable Relationships: No Supportive Family: No (Patient indicates that he had formerly lived with his mother and paternal grandfather, but indicates today that they were not supportive) Good Rapport with Provider: No Absence of Any Risk Factors Above: No Interval History Identifying Information MAR OH is a 44-year-old M who currently is homeless and arrived in [place] by bus. He has a self-reported history of bipolar disorder, and was admitted on 07/28/19 15:05 on a 201 voluntary agreement because of psychosis and suicidal ideations. Chief Complaint " Not well". Review of Systems Sleep Information Total Hours of Sleep: 7.25 Sleep Comments: mar came out to the nurses station around 0335. stated he needed something to help him with sleep. stated he had been awake for hours then said he did not know what time it was. he had not appeared to have been awake prior to this. prn meds reviewed. he was provided with a prn dose of tylenol for #7 elbow/shoulder pain management and prn zydis for his thinking/thoughts. Meal Information Percent Meal Consumed - Breakfast: 100 Percent Meal Consumed - Lunch: 100 Percent Meal Consumed - Dinner: 100 Subjective Subjective Patient was seen & assessed and interval progress reviewed with nursing and social work. Staff report it was discovered that he has felony charges for assault on a healthcare worked from 03/2019. He showered and attended groups last evening, and was a good participant. He requested prn olanzapine overnight, in addition to his scheduled dose. On my assessment, he was seen in his room where he remains in bed with the covers pulled over his head. He reports sleep was "off and on, but good enough." He reports good appetite, and states that the groups he attended were "all right." Mood is improved and he describes it is "fine," although still does not feel safe leaving the hospital and cannot contract for safety outside of the hospital. Physical Exam Psychiatric Orientation: alert and cooperative (Partially) In bed with the covers pulled over his head Motor Behavior: no abnormal motor movements Speech, irritated tone Affect: + depressed affect and + irritable affect; + mood not congruent with affect "Fine." Thought Process: goal directed thought process Thought Content: + paranoid Suicidal Thoughts: denies suicidal thoughts Homicidal Thoughts: denies homicidal thoughts Hallucinations: no auditory hallucinations Insight: + limited insight Judgement: + limited judgement Vital Signs (Past 24 Hours) Last Vital Signs Temp 36.5 C 07/31/19 06:37 Pulse 66 07/31/19 06:38 Resp 18 07/31/19 06:37 BP 127/77 07/31/19 06:38 Pulse Ox 95 07/28/19 17:40 Results & Data ([facility]) Current Inpatient Medications Current Inpatient Medications: Current Inpatient Medications Acetaminophen (Tylenol) 650 mg PO Q4H PRN PRN Reason: Headache or Minor Fever Stop: 08/27/19 15:04 Last Admin: 07/31/19 03:45 Dose: 650 mg Documented by: Al Hydrox/Mg Hydrox/Simethicone (Maalox) 30 ml PO Q4H PRN PRN Reason: GI Upset Stop: 08/27/19 15:04 Bismuth Subsalicylate (Kaopectate) 15 ml PO PRN PRN PRN Reason: Loose Stool Stop: 08/27/19 15:04 Haloperidol (Haldol) 5 mg PO Q6 PRN PRN Reason: psychosis/agitation Stop: 08/27/19 15:34 Last Admin: 07/29/19 18:07 Dose: 5 mg Documented by: Hydroxyzine HCl (Vistaril) 25 mg PO Q4H PRN PRN Reason: Anxiety Stop: 08/27/19 15:04 Last Admin: 07/29/19 16:46 Dose: 25 mg Documented by: Hydroxyzine HCl (Vistaril) 50 mg PO HSZ PRN PRN Reason: Insomnia Stop: 08/27/19 15:04 Last Admin: 07/30/19 01:58 Dose: 50 mg Documented by: Magnesium Hydroxide (Milk Of Magnesia) 30 ml PO DAILY PRN PRN Reason: Constipation Stop: 08/27/19 15:04 Nicotine Polacrilex (Nicorette 2mg) 1 piece MT PRN PRN PRN Reason: nicotine cravings Stop: 08/27/19 16:28 Last Admin: 07/30/19 21:22 Dose: 1 piece Documented by: Olanzapine (Zyprexa Zydis Od) 15 mg PO HS SUZI Stop: 08/29/19 21:59 Last Admin: 07/30/19 21:22 Dose: 15 mg Documented by: Olanzapine (Zyprexa Zydis Od) 5 mg PO Q4H PRN PRN Reason: psychosis Stop: 08/29/19 08:44 Last Admin: 07/31/19 03:44 Dose: 5 mg Documented by: Sodium Chloride ([place]ankins Nasal) 1 - 2 sprays NA PRN PRN PRN Reason: Nasal Dryness/Congestion Stop: 08/27/19 15:04 Mental Health & Subst Abuse Tx Therapist Name of Therapist: None Lime Kiln Tender Name of Lime Kiln Tender: None Post Discharge Appointments Primary Care Physician Name Of Family Doctor: None Contact Information Contact Information Comment: Permanent [address]: [address] [place] [address]
[2019-07-31] MEDS: NICOTINE POLACRILEX 2 MG GUM MT PRN ×6 (08:39→18:34)
[2019-07-31 08:43] LABS: Glucose Fasting 105 mg/dl (70-99)
[2019-07-31 08:49] LABS: Chol HDL Ratio 3; Cholesterol 161 mg/dl (0-200); HDL Cholesterol 50 mg/dl; LDL Cholesterol Calculated 90 mg/dl; Triglycerides 104 mg/dl (0-150); VLDL Cholesterol 21 mg/dl
[2019-07-31] MEDS: haloperidoL 5 MG TAB PO PRN (13:48)
[2019-07-31] MEDS: OLANZAPINE ZYDIS 5 MG ORALLY DIS. TAB PO SCH (20:49)
[2019-08-01] MEDS: OLANZAPINE ZYDIS 5 MG ORALLY DIS. TAB PO PRN (00:29)
[2019-08-01] MEDS: ACETAMINOPHEN 325 MG TAB PO PRN ×2 (03:38→22:56)
--- NOTE | 2019-08-01 07:21 | Psychiatric Progress Note ---
Date of Service August 01, 2019 Impression / Recommendations Impression 44-year-old male with a history of bipolar disorder and substance abuse who [facility] due to treatment noncompliance, got on a bus with a plan to go to [facility], but presented here en route with mixed symptoms and psychosis. He reports no drug use in months, but we do not have collateral information to confirm recent events/symptoms. He describes delusions involving alien insects that he believes are causing coronavirus, and states this has been going on for 2 years. He signed in voluntarily, and was started on olanzapine for both mood and psychotic symptoms. Today he is r equesting retrial of an SSRI to target anxiety. He is less focused on his delusions, and plans to stay with his grandfather in the [place] area after discharge, but has no transportation there and no current outpatient treatment. He will need to work with the social problems specialist to apply for medical assistance so that he can be referred for outpatient treatment, and we will continue to encourage a family meeting, which he is now refusing. Inpatient treatment is medically necessary due to the severity of his psychotic symptoms and risk of harm to himself as well as inability to care for himself if discharged prematurely. (1) Bipolar 1 disorder, mixed: 07/29/2019 -The patient was admitted to the locked inpatient psychiatric unit at [facility]. -He is being observed on suicide precautions. -The patient is being encouraged to participate in individual, group, and activity therapies as a way of improving his coping strategies. -Begin Zyprexa 10 mg at bedtime. Material risks and anticipated benefits of Zyprexa, including, but not limited to metabolic syndrome and its components were reviewed with the patient and he indicated understanding. 07/29 -Increase olanzapine to 15 mg at bedtime, and add a as needed dose. FLP and FG ordered tomorrow for monitoring on an atypical antipsychotic. -Attempt to get collateral information, either from family or [facility] staff. Unclear if he has outpatient providers. -Continue private room due to psychosis. May attend groups as able to tolerate. -History of violence with active felony aggravated assault charges, as well as simple assault and harassment. We will attempt to coordinate with his contract consultant, as he missed a court date recently. 07/30 -Continue olanzapine; FG 105, FLP normal. 07/31 -Increase olanzapine to 20 mg at bedtime and continue as needed's. Continue to work on healthy coping skills. -Initiate sertraline 25 mg daily to target mood and anxiety symptoms, and increase to 50 mg daily tomorrow if well tolerated. Monitor for mood destabilization. -Patient continues to refuse a family meeting with his grandfather, but states he plans to go there at discharge, although has no transportation. Encouraged him to start considering his supports (indicates he has some friends in the [place] area). -Patient will need referral for outpatient therapy and psychiatric care (indicates plan to return to [facility]). 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 However, he does freely acknowledges that he has a long history of the abuse of multiple chemical substances. He tells us that his drug of choice is heroin, but he is also abused stimulants such as methamphetamine and cocaine, as well as marijuana, hallucinogens and others. -Today, he voices an intent to maintain abstinence from drugs of abuse, but then rationalizes his use by saying "if you were going through the things I go through you would use drugs to!" -We will provide chemical dependency education services during the hospital, and will consider this need as part of our ongoing aftercare planning. (3) Suicidal ideations: 07/29/2019 -Patient reports that he has had thoughts of jumping in front of a car or jumping off a bridge as a way of ending the "torture" that he feels that he is experiencing as a function of his delusions. -Today, he expresses some ambivalence about being suicidal and now seems to be talking about it as something that he might resort to in the not too distant future if his circumstances do not improve. -At this point, inpatient psychiatric hospitalization is the least intensive and least restrictive level of care consistent with the patient's clinical safety needs. There is a past history of suicide attempts, and the patient's emotional lability coupled with the degree to which he is clearly distressed by his belief that he has been continuously harassed and exploited by sentient insect, under the control of an "evil mastermind" currently places him at imminent risk outside the safety and structure of a psychiatric hospital setting. Inventory Assets Strengths: Patient states that he is willing to cooperate with treatment. There is some evidence that the patient may have responded favorably to psychiatric treatment in the past. Needs: Sustained abstinence from alcohol and other drugs. Adherence with psychiatric treatment on an outpatient basis. Improved social supports. Risk Factors Assessment Male: Yes : Yes Do You Have Access To A Gun?: No Health Problems: No Mental Health Diagnoses: Yes Substance Use Disorders: Yes Previous Attempt: Yes Previous Attempt; Highly Lethal: No Previous Attempt; Planned: No Previous Attempt; Didn't Tell Anyone: Yes Family History of Suicide: No Previous Psychiatric Hospitalization: Yes Hopelessness: No Smoker: Yes Protective Factors Assessment Yazidi Beliefs: No : No Responsible for Young Children: No Employed: No Stable Relationships: No Supportive Family: No (Patient indicates that he had formerly lived with his mother and paternal grandfather, but indicates today that they were not supportive) Good Rapport with Provider: No Absence of Any Risk Factors Above: No Interval History Identifying Information YAO OH is a 44-year-old M who currently is homeless and arrived in [place] by bus. He has a self-reported history of bipolar disorder, and was admitted on 07/28/19 15:05 on a 201 voluntary agreement because of psychosis and suicidal ideations. Chief Complaint " Okay". Review of Systems Sleep Information Total Hours of Sleep: 1.75 Sleep Comments: difficult time sleeping mostly related to physical discomfort- shoulders ached him. medicated for sleep/thought with zydis and tylenol for pain Meal Information Percent Meal Consumed - Breakfast: 100 Percent Meal Consumed - Lunch: 100 Percent Meal Consumed - Dinner: 100 Subjective Subjective Patient was seen & assessed and interval progress reviewed with treatment team. Staff report he requested multiple prns yesterday stating he "didn't feel right," and got 3 doses of olanzapine 2/5mg in addition to his scheduled 10m dose, as well as haloperidol prn. He was pleasant with staff, and sporadically attends groups. He was able to contact his grandfather in [facility], and states he wants to go there, but has no way to get there (buses aren't running). On my assessment, he states that he slept poorly overnight, but reports he was sleeping off and on during the day yesterday, and will try to stay awake today. Mood is "dunno, kind of depressed, always kind of depressed though, and anxious." He states he has been on many different medications for mood and anxiety, and is unsure what has worked and what has not. He wants medication f or anxiety, but states he does not want "a blood pressure medication," stating that he was prescribed several blood pressure medications at the [facility], and this is actually why he was kicked out, as he refused to continue taking them, which was a violation of the treatment agreement. He reports opiate withdrawal, stating he stopped Suboxone about 8 days ago when he left the [facility], and is experiencing sweats, chills, runny nose, and muscle soreness. He denies suicidal and homicidal thoughts, and states he is still concerned about the parasites he believes have infested everyone and are causing coronavirus, stating "it's the same, it'll never change," but has not been as focused on it nor bringing it up in discussion as readily. He says he knows that no one believes him, and says his goal is to "prove it to everyone that this is true." He says it is not bothering him as much right now, "but that is because I'm here, we'll see what happens when I leave." He says he spoke to his grandfather and can still go and stay with him and [facility], but does not know how he will get there. Medication Trials Patient initially unable to relay previous medication trials, but today states they include: Escitalopram 10 mg, unsure if it helped Venlafaxine XR -discontinuation symptoms Sertraline -effective and well-tolerated Paroxetine -well-tolerated [place] Depakote Propanolol -did not like it, blurry vision Clonidine Physical Exam Psychiatric Orientation: alert and cooperative Apperance: appropriately dressed; + did not appear stated age Thin male appearing older than his stated age, casually dressed in blue jeans and a worn out T-shirt. Chin length hair, full facial hair, adequate hygiene, limited grooming. Eye Contact: + fair eye contact Motor Behavior: steady gait and station and no abnormal motor movements Speech: normal rate/rhythm/volume of speech Affect: + depressed affect, + anxious affect and mood congruent with affect Mood: + depressed mood and + anxious mood Thought Process: goal directed thought process Thought Content: + paranoid, + delusions and + persecution Suicidal Thoughts: denies suicidal thoughts Homicidal Thoughts: denies homicidal thoughts Hallucinations: + tactile hallucinations (Bugs biting him); no auditory hallucinations and no visual hallucinations Cognition: recent memory grossly intact, attention grossly intact and language grossly intact Insight: + impaired insight Judgement: + impaired judgement Vital Signs (Past 24 Hours) Last Vital Signs Temp 36.7 C 08/01/19 06:50 Pulse 66 08/01/19 06:51 Resp 18 08/01/19 06:50 BP 155/73 H 08/01/19 06:51 Pulse Ox 95 07/28/19 17:40 Results & Data ([facility]) Laboratory Results Laboratory Results - last 24 hr 07/31/19 08:18 Fasting Glucose 105 H Triglycerides 104 Cholesterol 161 LDL Cholesterol, Calc 90 VLDL Cholesterol, Calc 21 HDL Cholesterol 50 Cholesterol/HDL Ratio 3 Current Inpatient Medications Current Inpatient Medications: Current Inpatient Medications Acetaminophen (Tylenol) 650 mg PO Q4H PRN PRN Reason: Headache or Minor Fever Stop: 08/27/19 15:04 Last Admin: 08/01/19 03:38 Dose: 650 mg Documented by: Al Hydrox/Mg Hydrox/Simethicone (Maalox) 30 ml PO Q4H PRN PRN Reason: GI Upset Stop: 08/27/19 15:04 Bismuth Subsalicylate (Kaopectate) 15 ml PO PRN PRN PRN Reason: Loose Stool Stop: 08/27/19 15:04 Haloperidol (Haldol) 5 mg PO Q6 PRN PRN Reason: psychosis/agitation Stop: 08/27/19 15:34 Last Admin: 07/31/19 13:48 Dose: 5 mg Documented by: Hydroxyzine HCl (Vistaril) 25 mg PO Q4H PRN PRN Reason: Anxiety Stop: 08/27/19 15:04 Last Admin: 07/31/19 18:34 Dose: 25 mg Documented by: Hydroxyzine HCl (Vistaril) 50 mg PO HSZ PRN PRN Reason: Insomnia Stop: 08/27/19 15:04 Last Admin: 07/31/19 23:04 Dose: 50 mg Documented by: Magnesium Hydroxide (Milk Of Magnesia) 30 ml PO DAILY PRN PRN Reason: Constipation Stop: 08/27/19 15:04 Nicotine Polacrilex (Nicorette 2mg) 1 piece MT PRN PRN PRN Reason: nicotine cravings Stop: 08/27/19 16:28 Last Admin: 07/31/19 18:34 Dose: 1 piece Documented by: Olanzapine (Zyprexa Zydis Od) 15 mg PO HS SUZI Stop: 08/29/19 21:59 Last Admin: 07/31/19 20:49 Dose: 15 mg Documented by: Olanzapine (Zyprexa Zydis Od) 5 mg PO Q4H PRN PRN Reason: psychosis Stop: 08/29/19 08:44 Last Admin: 08/01/19 00:29 Dose: 5 mg Documented by: Sodium Chloride ([place] Nasal) 1 - 2 sprays NA PRN PRN PRN Reason: Nasal Dryness/Congestion Stop: 08/27/19 15:04 Mental Health & Subst Abuse Tx Therapist Name of Therapist: None Grain Drier Name of Grain Drier: None Post Discharge Appointments Primary Care Physician Name Of Family Doctor: None Contact Information Contact Information Comment: P[address] [address] [place] [id number]
[2019-08-01] MEDS: SERTRALINE HCL 50 MG TABLET PO SCH (10:07)
[2019-08-01] MEDS: OLANZapine 5 MG TABLET PO PRN (10:31)
[2019-08-01] MEDS: NICOTINE POLACRILEX 2 MG GUM MT PRN ×4 (11:26→19:07)
[2019-08-01] MEDS: haloperidoL 5 MG TAB PO PRN ×2 (13:15→21:01)
[2019-08-01] MEDS: OLANZapine 20 MG TABLET PO SCH (20:58)
[2019-08-02] MEDS: cloNIDine HCL 0.1 MG TAB PO PRN ×4 (07:40→17:37)
[2019-08-02] MEDS: SERTRALINE HCL 50 MG TABLET PO SCH (07:41)
--- NOTE | 2019-08-02 08:37 | Psychiatric Progress Note ---
Date of Service August 02, 2019 Impression / Recommendations Impression 44-year-old male with a history of bipolar disorder and substance abuse who was kicked out of his skilled nursing house due to treatment noncompliance, got on a bus with a plan to go to [facility], but presented here en route with mixed symptoms and psychosis. Pt initially reported no drug use in months, but is now endorsing abuse of Suboxone about 2 days prior to his admission. He describes delusions involving alien insects that he believes are causing coronavirus, and states this has been going on for 2 years. He signed in voluntarily, and was started on olanzapine for both mood and psychotic symptoms. Pt did request and was started on sertraline to target anxiety and trazodone to target sleep. He is less focused on his delusions, and plans to stay with his grandfather in the [place] area after discharge, but has no transportation there and no current outpatient treatment. He will need to work with the director social to apply for medical assistance so that he can be referred for outpatient treatment, and we will continue to encourage a family meeting, which he continues to decline refusing. Inpatient treatment is medically necessary due to the severity of his psychotic symptoms and risk of harm to himself as well as inability to care for himself if discharged prematurely. (1) Bipolar 1 disorder, mixed: 07/29/2019 -The patient was admitted to the locked inpatient psychiatric unit at [facility]. -He is being observed on suicide precautions. -The patient is being encouraged to participate in individual, group, and activity therapies as a way of improving his coping strategies. -Begin Zyprexa 10 mg at bedtime. Material risks and anticipated benefits of Zyprexa, including, but not limited to metabolic syndrome and its components were reviewed with the patient and he indicated understanding. 07/29 -Increase olanzapine to 15 mg at bedtime, and add a as needed dose. FLP and FG ordered tomorrow for monitoring on an atypical antipsychotic. -Attempt to get collateral information, either from family or skilled nursing house staff. Unclear if he has outpatient providers. -Continue private room due to psychosis. May attend groups as able to tolerate. -History of violence with active felony aggravated assault charges, as well as simple assault and harassment. We will attempt to coordinate with his business attorney, as he missed a court date recently. 07/30 -Continue olanzapine; FG 105, FLP normal. 07/31 -Increase olanzapine to 20 mg at bedtime and continue as needed's. Continue to work on healthy coping skills. -Initiate sertraline 25 mg daily to target mood and anxiety symptoms, and increase to 50 mg daily tomorrow if well tolerated. Monitor for mood destabilization. -Patient continues to refuse a family meeting with his grandfather, but states he plans to go there at discharge, although has no transportation. Encouraged him to start considering his supports (indicates he has some friends in the [place] area). -Patient will need referral for outpatient therapy and psychiatric care (indicates plan to return to [facility]). 08/01 - Continue olanzapine 20mg at bedtime; patient requesting trazodone for sleep as well - will order 150mg qHS (pt previously taking as much as 250mg). 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 However, he does freely acknowledges that he has a long history of the abuse of multiple chemical substances. He tells us that his drug of choice is heroin, but he is also abused stimulants such as methamphetamine and cocaine, as well as marijuana, hallucinogens and others. -Today, he voices an intent to maintain abstinence from drugs of abuse, but then rationalizes his use by saying "if you were going through the things I go through you would use drugs to!" -We will provide chemical dependency education services during the hospital, and will consider this need as part of our ongoing aftercare planning. (3) Suicidal ideations: 07/29/2019 -Patient reports that he has had thoughts of jumping in front of a car or jumping off a bridge as a way of ending the "torture" that he feels that he is experiencing as a function of his delusions. -Today, he expresses some ambivalence about being suicidal and now seems to be talking about it as something that he might resort to in the not too distant future if his circumstances do not improve. -At this point, inpatient psychiatric hospitalization is the least intensive and least restrictive level of care consistent with the patient's clinical safety needs. There is a past history of suicide attempts, and the patient's emotional lability coupled with the degree to which he is clearly distressed by his belief that he has been continuously harassed and exploited by sentient insect, under the control of an "evil mastermind" currently places him at immin ent risk outside the safety and structure of a psychiatric hospital setting. 08/01 - Pt denies SI today, but reports worsening mood with withdrawal symptoms Inventory Assets Strengths: Patient states that he is willing to cooperate with treatment. There is some evidence that the patient may have responded favorably to psychiatric treatment in the past. Needs: Sustained abstinence from alcohol and other drugs. Adherence with psychiatric treatment on an outpatient basis. Improved social supports. Risk Factors Assessment Male: Yes : Yes Do You Have Access To A Gun?: No Health Problems: No Mental Health Diagnoses: Yes Substance Use Disorders: Yes Previous Attempt: Yes Previous Attempt; Highly Lethal: No Previous Attempt; Planned: No Previous Attempt; Didn't Tell Anyone: Yes Family History of Suicide: No Previous Psychiatric Hospitalization: Yes Hopelessness: No Smoker: Yes Protective Factors Assessment Catholic Beliefs: No : No Responsible for Young Children: No Employed: No Stable Relationships: No Supportive Family: No (Patient indicates that he had formerly lived with his mother and paternal grandfather, but indicates today that they were not supportive) Good Rapport with Provider: No Absence of Any Risk Factors Above: No Interval History Identifying Information YAO OH is a 44-year-old M who currently is homeless and arrived in [place] by bus. He has a self-reported history of bipolar disorder, and was admitted on 07/28/19 15:05 on a 201 voluntary agreement because of psychosis and suicidal ideations. Chief Complaint "Oh, I'm feeling a bit worse today, physically." Review of Systems Notes Constitutional: reports restlessness Cardiovascular: denied Respiratory: denied Gastrointestinal: reports nausea Neurological: denied Psychiatric: denies symptoms other than stated above Total of at least 10 systems reviewed, pertinent positives as above and in HPI. Sleep Information Total Hours of Sleep: 4.5 Sleep Comments: pt given vistaril per rn. pt appeared to be asleep @0130 and thereafter. pt on q-15 minute checks Meal Information Percent Meal Consumed - Breakfast: 100 Percent Meal Consumed - Lunch: 100 Percent Meal Consumed - Dinner: 100 Nutrition Comment: per meal record Medication Trials Patient initially unable to relay previous medication trials, but today states they include: Escitalopram 10 mg, unsure if it helped Venlafaxine XR -discontinuation symptoms Sertraline -effective and well-tolerated Paroxetine -well-tolerated Hasty Depakote Propanolol -did not like it, blurry vision Clonidine Subjective Subjective Patient was seen & assessed and interval progress reviewed with nursing and social work. Staff report the patient has been reporting increased physical symptoms suggestive of withdrawal. Pt has been participating in group programming, and is verbalizing a plan to live with his grandfather in the [place] area after discharge - though continues to report he has not transpo rtation. Pt was seen today to assess progress since admission. Pt's case reviewed with nursing, as patient was reporting nausea, restlessness, and anxiety. This provider did order ondansetron and benztropine for the patient - as he has been receiving prn doses of both olanzapine and haloperidol. Pt received these medications just prior to his encounter with this provider. Pt states that his current combination of symptoms seems most consistent with withdrawal, as he admits he has felt similarly in the past. Pt reports he has taken several hot showers today but "other than medications, I can't do much more than wait it out." Pt denies SI presently, though does state "in general, life sucks. There isn't much to live for, but I came here instead of acting on it." Pt continues to report plan to live with his grandfather. Pt states his own car is in the [place] area, and both his mother and brother do not have cars or local driver's licenses. While patient admits he does not yet feel safe to leave the hospital, we will also need to work on transportation options. When asked about any bizarre or paranoid thoughts, patient hesitates and then states "well, gees....I've talked about this a lot...I guess, I guess I'll just say no." Documentation for staff suggests patient has admitted to ongoing paranoia and delusions, but has been somewhat less preoccupied with them. Pt denies other needs or concerns today. Records from [facility] Received and Reviewed - Treatment Summary - Patient's presence in treatment was reported to have been 3 appointments, with 2 no-shows. Pt was treated at this facility from -07/25/2019 and was reportedly discharge Against Facility Advice. It was reported that patient refused aftercare and was "not open" to obtaining information regarding community resources. Pt did not identify a discharge location. Progress was reported as "insufficient" Pt did reportedly participate in groups during his s tony, and relapse did not occur while he was engaged in the program. Prognosis was estimated to be poor. Medication Trials . Physical Exam Psychiatric Orientation: alert, oriented x 3 and cooperative Apperance: appropriately dressed (casually, in jeans and a t-shirt) and appropriately groomed (recently showered) Eye Contact: good eye contact Motor Behavior: steady gait and station and no abnormal motor movements Speech: normal rate/rhythm/volume of speech Affect: + blunted affect (not appearing overtly depressed) Thought Process: goal directed thought process and thought association intact Thought Content: no delusions (patient does not verbalize any delusional thought content during encounter ) and no hopelessness Suicidal Thoughts: denies suicidal thoughts and denies suicidal intent Homicidal Thoughts: denies homicidal thoughts Hallucinations: + tactile hallucinations (pt did not mention specifically, but admits to restlessness); no auditory hallucinations and no visual hallucinations Cognition: attention grossly intact and language grossly intact Insight: + fair insight Judgement: + fair judgement Vital Signs (Past 24 Hours) Last Vital Signs Temp 36.7 C 08/02/19 06:51 Pulse 60 08/02/19 06:51 Resp 18 08/02/19 06:51 BP 174/86 H 08/02/19 06:51 Pulse Ox 95 07/28/19 17:40 Results & Data ([facility]) Current Inpatient Medications Current Inpatient Medications: Current Inpatient Medications Acetaminophen (Tylenol) 650 mg PO Q4H PRN PRN Reason: Headache or Minor Fever Stop: 08/27/19 15:04 Last Admin: 08/01/19 22:56 Dose: 650 mg Documented by: Al Hydrox/Mg Hydrox/Simethicone (Maalox) 30 ml PO Q4H PRN PRN Reason: GI Upset Stop: 08/27/19 15:04 Bismuth Subsalicylate (Kaopectate) 15 ml PO PRN PRN PRN Reason: Loose Stool Stop: 08/27/19 15:04 Clonidine HCl (Catapres) 0.1 mg PO Q2H PRN PRN Reason: For any 2 symptoms Stop: 08/31/19 09:13 Last Admin: 08/02/19 07:40 Dose: 0.1 mg Documented by: Haloperidol (Haldol) 5 mg PO Q6 PRN PRN Reason: psychosis/agitation Stop: 08/27/19 15:34 Last Admin: 08/01/19 21:01 Dose: 5 mg Documented by: Hydroxyzine HCl (Vistaril) 25 mg PO Q4H PRN PRN Reason: Anxiety Stop: 08/27/19 15:04 Last Admin: 08/01/19 18:04 Dose: 25 mg Documented by: Hydroxyzine HCl (Vistaril) 50 mg PO HSZ PRN PRN Reason: Insomnia Stop: 08/27/19 15:04 Last Admin: 08/01/19 22:54 Dose: 50 mg Documented by: Magnesium Hydroxide (Milk Of Magnesia) 30 ml PO DAILY PRN PRN Reason: Constipation Stop: 08/27/19 15:04 Nicotine Polacrilex (Nicorette 2mg) 1 piece MT PRN PRN PRN Reason: nicotine cravings Stop: 08/27/19 16:28 Last Admin: 08/01/19 19:07 Dose: 1 piece Documented by: Olanzapine (Zyprexa) 20 mg PO HS SUZI Stop: 08/31/19 21:59 Last Admin: 08/01/19 20:58 Dose: 20 mg Documented by: Olanzapine (Zyprexa) 5 mg PO QAM PRN PRN Reason: psychosis Stop: 08/31/19 08:59 Last Admin: 08/01/19 10:31 Dose: 5 mg Documented by: Sertraline HCl (Zoloft) 50 mg PO QAM SUZI Stop: 08/31/19 09:14 Last Admin: 08/02/19 07:41 Dose: 50 mg Documented by: Sodium Chloride ([place] Nasal) 1 - 2 sprays NA PRN PRN PRN Reason: Nasal Dryness/Congestion Stop: 08/27/19 15:04 Mental Health & Subst Abuse Tx Therapist Name of Therapist: None Grinder Operator Automatic Name of Grinder Operator Automatic: None Post Discharge Appointments Primary Care Physician Name Of Family Doctor: None Contact Information Contact Information Comment: Permanent [address]: [address] [place] [address] [place] [id number]
[2019-08-02] MEDS: BENZTROPINE MESYLATE 0.5 MG TAB PO PRN (11:28)
[2019-08-02] MEDS: IBUPROFEN 600 MG TAB PO PRN (11:29)
[2019-08-02] MEDS: ONDANSETRON 4 MG OD TAB PO PRN ×2 (11:30→16:29)
[2019-08-02] MEDS: NICOTINE POLACRILEX 2 MG GUM MT PRN ×2 (13:48→17:37)
[2019-08-02] MEDS: haloperidoL 5 MG TAB PO PRN (14:57)
[2019-08-02] MEDS: OLANZapine 20 MG TABLET PO SCH (20:49)
[2019-08-02] MEDS: TRAZODONE HCL 50 MG TAB PO PRN (20:56)
[2019-08-03] MEDS: cloNIDine HCL 0.1 MG TAB PO PRN ×4 (07:41→18:17)
[2019-08-03] MEDS: SERTRALINE HCL 50 MG TABLET PO SCH (07:42)
[2019-08-03] MEDS: ONDANSETRON 4 MG OD TAB PO PRN ×2 (07:43→17:08)
[2019-08-03] MEDS: NICOTINE POLACRILEX 2 MG GUM MT PRN ×4 (08:40→20:39)
--- NOTE | 2019-08-03 08:53 | Psychiatric Progress Note ---
Date of Service August 03, 2019 Impression / Recommendations Impression 44-year-old male with a history of bipolar disorder and substance abuse who was discharged from his detention house due to treatment noncompliance, got on a bus with a plan to go to [facility], but presented here en route with mixed symptoms and psychosis. Pt initially reported no drug use in months, but is now endorsing abuse of Suboxone about 2 days prior to his admission. He is endorsing opiate withdrawal symptoms, which she is receiving numerous as needed's daily. He describes delusions involving alien insects that he believes are causing coronavirus, and states this has been going on for 2 years. He signed in voluntarily, and was started on olanzapine for both mood and psychotic symptoms, sertraline for anxiety, and trazodone for sleep. He is less focused on his delusions, and plans to stay with his grandfather in the [place] area after discharge, but has no transportation there and no current outpatient treatment. He is declining a family meeting, and there is likely more to the story that he is not sharing. Inpatient treatment remains medically necessary due to the severity of his psychotic symptoms and risk of harm to himself as well as inability to care for himself if discharged prematurely. (1) Bipolar 1 disorder, mixed: 07/29/2019 -The patient was admitted to the locked inpatient psychiatric unit at [facility]. -He is being observed on suicide precautions. -The patient is being encouraged to participate in individual, group, and activity therapies as a way of improving his coping strategies. -Begin Zyprexa 10 mg at bedtime. Material risks and anticipated benefits of Zyprexa, including, but not limited to metabolic syndrome and its components were reviewed with the patient and he indicated understanding. 07/29 -Increase olanzapine to 15 mg at bedtime, and add a as needed dose. FLP and FG ordered tomorrow for monitoring on an atypical antipsychotic. -Attempt to get collateral information, either from family or detention house staff. Unclear if he has outpatient providers. -Continue private room due to psychosis. May attend groups as able to tolerate. -History of violence with active felony aggravated assault charges, as well as simple assault and harassment. We will attempt to coordinate with his family law attorney, as he missed a court date recently. 07/30 -Continue olanzapine; FG 105, FLP normal. 07/31 -Increase olanzapine to 20 mg at bedtime and continue as needed's. Continue to work on healthy coping skills. -Initiate sertraline 25 mg daily to target mood and anxiety symptoms, and increase to 50 mg daily tomorrow if well tolerated. Monitor for mood destabilization. -Patient continues to refuse a family meeting with his grandfather, but states he plans to go there at discharge, although has no transportation. Encouraged him to start considering his supports (indicates he has some friends in the [place] area). -Patient will need referral for outpatient therapy and psychiatric care (indicates plan to return to [facility]). 08/01 - Continue olanzapine 20mg at bedtime; patient requesting trazodone for sleep as well - will order 150mg qHS (pt previously taking as much as 250mg). - Continue sertraline 50mg qAM - Pt continues to state his supports are unable to participate in a family meeting, as grandfather is reportedly sick - Attempting to coordinate aftercare in the [place] area 08/02 -Continue current medications and plan. (2) Suicidal ideations: 07/29/2019 -Patient reports that he has had thoughts of jumping in front of a car or jumping off a bridge as a way of ending the "torture" that he feels that he is experiencing as a function of his delusions. -Today, he expresses some ambivalence about being suicidal and now seems to be talking about it as something that he might resort to in the not too distant future if his circumstances do not improve. -At this point, inpatient psychiatric hospitalization is the least intensive and least restrictive level of care consistent with the patient's clinical safety needs. There is a past history of suicide attempts, and the patient's emotional lability coupled with the degree to which he is clearly distressed by his belief that he has been continuously harassed and exploited by sentient insect, under the control of an "evil mastermind" currently places him at imminent risk outside the safety and structure of a psychiatric hospital setting. 08/01 - Pt denies SI today, but reports worsening mood with withdrawal symptoms (3) Opiate withdrawal: Continue clonidine protocol, and use of Kaopectate, acetaminophen, milk of magnesia, ibuprofen, and ondansetron as needed. 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 However, he does freely acknowledges that he has a long history of the abuse of multiple chemical substances. He tells us that his drug of choice is heroin, but he is also abused stimulants such as methamphetamine and cocaine, as well as marijuana, hallucinogens and others. -Today, he voices an intent to maintain abstinence from drugs of abuse, but then rationalizes his use by saying "if you were going through the things I go through you would use drugs to!" -We will provide chemical dependency education services during the hospital, and will consider this need as part of our ongoing aftercare planning. (5) Opiate abuse, continuous: History of heroin use, states he was prescribed Suboxone while living in [place], from a doctor in [place], but ran out of it after he was discharged from his [place] due to treatment noncompliance. We have requested records from the [facility] to clarify past treatment and diagnoses. Inventory Assets Strengths: Patient states that he is willing to cooperate with treatment. There is some evidence that the patient may have responded favorably to psychiatric treatment in the past. Needs: Sustained abstinence from alcohol and other drugs. Adherence with psychiatric treatment on an outpatient basis. Improved social supports. Risk Factors Assessment Male: Yes : Yes Do You Have Access To A Gun?: No Health Problems: No Mental Health Diagnoses: Yes Substance Use Disorders: Yes Previous Attempt: Yes Previous Attempt; Highly Lethal: No Previous Attempt; Planned: No Previous Attempt; Didn't Tell Anyone: Yes Family History of Suicide: No Previous Psychiatric Hospitalization: Yes Hopelessness: No Smoker: Yes Protective Factors Assessment Mu-Ism Beliefs: No : No Responsible for Young Children: No Employed: No Stable Relationships: No Supportive Family: No (Patient indicates that he had formerly lived with his mother and paternal grandfather, but indicates today that they were not supportive) Good Rapport with Provider: No Absence of Any Risk Factors Above: No Interval History Identifying Information YAO OH is a 44-year-old M who currently is homeless and arrived in [place] by bus. He has a self-reported history of bipolar disorder, and was admitted on 07/28/19 15:05 on a 201 voluntary agreement because of psychosis and suicidal ideations. Chief Complaint "Better than yesterday". Review of Systems Sleep Information Total Hours of Sleep: 9.5 Sleep Comments: pt given trazodone per rn. pt appeared to be asleep for 2.5 hrs during evening shift. pt on q-15 minute checks Meal Information Percent Meal Consumed - Breakfast: 50 Percent Meal Consumed - Lunch: 50 Percent Meal Consumed - Dinner: 80 Nutrition Comment: pt. reports emesis after eating 50% of lunch Medication Trials . Subjective Subjective Patient was seen & assessed and interval progress reviewed with treatment team. Staff report he is reporting a variety of physical symptoms of withdrawal, including sweats, chills, muscle aches, restlessness, nausea, vomiting, and getting numerous prns. On my assessment, he states that he is feeling better, as his withdrawal symptoms have lessened, although he continues to have rhinorrhea, muscle aches, sweats, and flatulence. Nausea is improved, and he was able to eat breakfast. He slept much better last night, and mood is improved today. He denies suicidal thoughts, and is working on discharge plans. Social work has been in contact with [facility], and are attempting to arrange outpatient treatment for him, as he was seen there before and requested to return. Physical Exam Psychiatric Orientation: alert and cooperative Apperance: appropriately dressed and appeared stated age Mildly disheveled and unkempt, but adequate hygiene and grooming. Seated in no acute distress on the edge of his bed. Eye Contact: + fair eye contact Motor Behavior: steady gait and station and no abnormal motor movements Speech: normal rate/rhythm/volume of speech Affect: + anxious affect (Mildly) "Better." Thought Process: goal directed thought process Patient does not spontaneously voice delusions about parasite infestation Suicidal Thoughts: denies suicidal thoughts Homicidal Thoughts: denies homicidal thoughts Hallucinations: no auditory hallucinations Cognition: recent memory grossly intact, attention grossly intact and language grossly intact Insight: + limited insight Judgement: + limited judgement Vital Signs (Past 24 Hours) Last Vital Signs Temp 37.1 C 08/03/19 06:39 Pulse 102 H 08/03/19 06:39 Resp 18 08/03/19 06:39 BP 146/78 H 08/03/19 06:39 Pulse Ox 95 07/28/19 17:40 Results & Data ([facility]) Current Inpatient Medications Current Inpatient Medications: Current Inpatient Medications Acetaminophen (Tylenol) 650 mg PO Q4H PRN PRN Reason: Headache or Minor Fever Stop: 08/27/19 15:04 Last Admin: 08/01/19 22:56 Dose: 650 mg Documented by: Al Hydrox/Mg Hydrox/Simethicone (Maalox) 30 ml PO Q4H PRN PRN Reason: GI Upset Stop: 08/27/19 15:04 Benztropine Mesylate (Cogentin) 0.5 mg PO Q4H PRN PRN Reason: Anesthesia Stop: 09/01/19 11:04 Last Admin: 08/02/19 11:28 Dose: 0.5 mg Documented by: Bismuth Subsalicylate (Kaopectate) 15 ml PO PRN PRN PRN Reason: Loose Stool Stop: 08/27/19 15:04 Clonidine HCl (Catapres) 0.1 mg PO Q2H PRN PRN Reason: For any 2 symptoms Stop: 08/31/19 09:13 Last Admin: 08/03/19 07:41 Dose: 0.1 mg Documented by: Haloperidol (Haldol) 5 mg PO Q6 PRN PRN Reason: psychosis/agitation Stop: 08/27/19 15:34 Last Admin: 08/02/19 14:57 Dose: 5 mg Documented by: Hydroxyzine HCl (Vistaril) 25 mg PO Q4H PRN PRN Reason: Anxiety Stop: 08/27/19 15:04 Last Admin: 08/01/19 18:04 Dose: 25 mg Documented by: Hydroxyzine HCl (Vistaril) 50 mg PO HSZ PRN PRN Reason: Insomnia Stop: 08/27/19 15:04 Last Admin: 08/01/19 22:54 Dose: 50 mg Documented by: Ibuprofen (Motrin) 600 mg PO Q6H PRN PRN Reason: Pain Stop: 09/01/19 10:47 Last Admin: 08/02/19 11:29 Dose: 600 mg Documented by: Magnesium Hydroxide (Milk Of Magnesia) 30 ml PO DAILY PRN PRN Reason: Constipation Stop: 08/27/19 15:04 Nicotine Polacrilex (Nicorette 2mg) 1 piece MT PRN PRN PRN Reason: nicotine cravings Stop: 08/27/19 16:28 Last Admin: 08/03/19 08:40 Dose: 1 piece Documented by: Olanzapine (Zyprexa) 20 mg PO HS SUZI Stop: 08/31/19 21:59 Last Admin: 08/02/19 20:49 Dose: 20 mg Documented by: Olanzapine (Zyprexa) 5 mg PO QAM PRN PRN Reason: psychosis Stop: 08/31/19 08:59 Last Admin: 08/01/19 10:31 Dose: 5 mg Documented by: Ondansetron HCl (Zofran Odt) 4 mg PO Q6H PRN PRN Reason: Nausea Stop: 09/01/19 10:47 Last Admin: 08/03/19 07:43 Dose: 4 mg Documented by: Sertraline HCl (Zoloft) 50 mg PO QAM SUZI Stop: 08/31/19 09:14 Last Admin: 08/03/19 07:42 Dose: 50 mg Documented by: Sodium Chloride (Wilkinson Nasal) 1 - 2 sprays NA PRN PRN PRN Reason: Nasal Dryness/Congestion Stop: 08/27/19 15:04 Trazodone HCl (Desyrel) 150 mg PO HS PRN PRN Reason: insomnia Stop: 09/01/19 21:59 Last Admin: 08/02/19 20:56 Dose: 150 mg Documented by: Mental Health & Subst Abuse Tx Therapist Name of Therapist: None Supervisor Brake Repair Name of Supervisor Brake Repair: None Post Discharge Appointments Primary Care Physician Name Of Family Doctor: None Contact Information Contact Information Comment: Permanent [address]: [address] [place] [address]
[2019-08-03] MEDS: OLANZapine 5 MG TABLET PO PRN (09:30)
[2019-08-03] MEDS: IBUPROFEN 600 MG TAB PO PRN (12:20)
[2019-08-03] MEDS: BENZTROPINE MESYLATE 0.5 MG TAB PO PRN ×2 (12:21→23:35)
[2019-08-03] MEDS: haloperidoL 5 MG TAB PO PRN ×2 (12:21→22:06)
[2019-08-03] MEDS: OLANZapine 20 MG TABLET PO SCH (20:40)
[2019-08-03] MEDS: TRAZODONE HCL 50 MG TAB PO PRN (20:48)
[2019-08-03] MEDS: ACETAMINOPHEN 325 MG TAB PO PRN (20:48)
[2019-08-03] MEDS: ALUMINUM/MAGNESIUM SUSP 30 ML UDC PO PRN (22:06)
[2019-08-04] MEDS: SERTRALINE HCL 50 MG TABLET PO SCH (08:45)
[2019-08-04] MEDS: NICOTINE POLACRILEX 2 MG GUM MT PRN ×7 (10:01→21:23)
[2019-08-04] MEDS: OLANZapine 5 MG TABLET PO PRN (10:01)
--- NOTE | 2019-08-04 11:45 | Psychiatric Progress Note ---
Date of Service August 04, 2019 Impression / Recommendations Impression 44-year-old male with a history of bipolar disorder and substance abuse who was discharged from his shelter house due to treatment noncompliance, got on a bus with a plan to go to [facility], but presented here en route with mixed symptoms and psychosis. Pt initially reported no drug use in months, but is now endorsing abuse of Suboxone about 2 days prior to his admission. He is endorsing opiate withdrawal symptoms, which she is receiving numerous as needed's daily. He describes delusions involving alien insects that he believes are causing coronavirus, and states this has been going on for 2 years. He signed in voluntarily, and was started on olanzapine for both mood and psychotic symptoms, sertraline for anxiety, and trazodone for sleep. He is less focused on his delusions, and plans to stay with his grandfather in the [place] area after discharge. He is declining a family meeting, and there is likely more to the story that he is not sharing. Although inpatient treatment remains medica lly necessary due to risk of harm to himself given refusal to allow staff to coordinate with outpatient supports and limited ability to secure outpatient psychiatric providers - his symptoms are not likely to improve significantly with a prolonged hospitalization given his resistance to treatment recommendations. He is denying SI and is able to verbalize a discharge plan he feels comfortable with. Pt was made aware of plan for discharge tomorrow morning, and is in support of this. A planned discharge will give our staff the opportunity to coordinate with outpatient psychiatric providers in the [facility], who reportedly only take referrals on [id number]. (1) Bipolar 1 disorder, mixed: 07/29/2019 -The patient was admitted to the locked inpatient psychiatric unit at [facility]. -He is being observed on suicide precautions. -The patient is being encouraged to participate in individual, group, and activity therapies as a way of improving his coping strategies. -Begin Zyprexa 10 mg at bedtime. Material risks and anticipated benefits of Zyprexa, including, but not limited to metabolic syndrome and its components were reviewed with the patient and he indicated understanding. 07/29 -Increase olanzapine to 15 mg at bedtime, and add a as needed dose. FLP and FG ordered tomorrow for monitoring on an atypical antipsychotic. -Attempt to get collateral information, either from family or shelter house staff. Unclear if he has outpatient providers. -Continue private room due to psychosis. May attend groups as able to tolerate. -History of violence with active felony aggravated assault charges, as well as simple assault and harassment. We will attempt to coordinate with his environmental attorney, as he missed a court date recently. 07/30 -Continue olanzapine; FG 105, FLP normal. 07/31 -Increase olanzapine to 20 mg at bedtime and continue as needed's. Continue to work on healthy coping skills. -Initiate sertraline 25 mg daily to target mood and anxiety symptoms, and increase to 50 mg daily tomorrow if well tolerated. Monitor for mood destabilization. -Patient continues to refuse a family meeting with his grandfather, but states he plans to go there at discharge, although has no transportation. Encouraged him to start considering his supports (indicates he has some friends in the [place] area). -Patient will need referral for outpatient therapy and psychiatric care (indicates plan to return to [facility]). 08/01 - Continue olanzapine 20mg at bedtime; patient requesting trazodone for sleep as well - will order 150mg qHS (pt previously taking as much as 250mg). - Continue sertraline 50mg qAM - Pt continues to state his supports are unable to participate in a family meeting, as grandfather is reportedly sick - Attempting to coordinate aftercare in the [place] area 08/02 -Continue current medications and plan. 08/03 - Continue current treatment plan - patient continues to decline family meeting - Continues to verbalize delusional thoughts regarding parasites; however, they do not appear to be directing his decision-making - Anticipate planned discharge tomorrow morning, which will allow our social work team to coordinate with possible outpatient psychiatric offices to reach out to patient for aftercare. (2) Suicidal ideations: 07/29/2019 -Patient reports that he has had thoughts of jumping in front of a car or jumping off a bridge as a way of ending the "torture" that he feels that he is experiencing as a function of his delusions. -Today, he expresses some ambivalence about being suicidal and now seems to be talking about it as something that he might resort to in the not too distant future if his circumstances do not improve. -At this point, inpatient psychiatric hospitalization is the least intensive and least restrictive level of care consistent with the patient's clinical safety needs. There is a past history of suicide attempts, and the patient's emotional lability coupled with the degree to which he is clearly distressed by his belief that he has been continuously harassed and exploited by sentient insect, under the control of an "evil mastermind" currently places him at imminent risk outside the safety and structure of a psychiatric hospital setting. 08/01 - Pt denies SI today, but reports worsening mood with withdrawal symptoms 08/03 - Continues to report resolution of SI; reporting improvement of withdrawal symptoms - Pt denies any safety concerns related to his anticipated discharge tomorrow (3) Opiate withdrawal: Continue clonidine protocol, and use of Kaopectate, acetaminophen, milk of magnesia, ibuprofen, and ondansetron as needed. (4) Substance abuse: 07/29/2019 -The patient is not considered to be a fully reliable field reporter. However, he does freely acknowledges that he has a long history of the abuse of multiple chemical substances. He tells us that his drug of choice is heroin, but he is also abused stimulants such as methamphetamine and cocaine, as well as marijuana, hallucinogens and others. -Today, he voices an intent to maintain abstinence from drugs of abuse, but then rationalizes his use by saying "if you were going through the things I go through you would use drugs to!" -We will provide chemical dependency education services during the hospital, and will consider this need as part of our ongoing aftercare planning. (5) Opiate abuse, continuous: History of heroin use, states he was prescribed Suboxone while living in [place], from a doctor in [place], but ran out of it after he was discharged from his [facility] due to treatment noncompliance. We have requested records from [facility] to clarify past treatment and diagnoses. Inventory Assets Strengths: Patient states that he is willing to cooperate with treatment. There is some evidence that the patient may have responded favorably to psychiatric treatment in the past. Needs: Sustained abstinence from alcohol and other drugs. Adherence with psychiatric treatment on an outpatient basis. Improved social supports. Risk Factors Assessment Male: Yes : Yes Do You Have Access To A Gun?: No Health Problems: No Mental Health Diagnoses: Yes Substance Use Disorders: Yes Previous Attempt: Yes Previous Attempt; Highly Lethal: No Previous Attempt; Planned: No Previous Attempt; Didn't Tell Anyone: Yes Family History of Suicide: No Previous Psychiatric Hospitalization: Yes Hopelessness: No Smoker: Yes Protective Factors Assessment Mandaen Beliefs: No : No Responsible for Young Children: No Employed: No Stable Relationships: No Supportive Family: No (Patient indicates that he had formerly lived with his mother and paternal grandfather, but indicates today that they were not supportive) Good Rapport with Provider: No Absence of Any Risk Factors Above: No Interval History Identifying Information YAO OH is a 44-year-old M who currently is homeless and arrived in [place] by bus. He has a self-reported history of bipolar disorder, and was admitted on 07/28/19 15:05 on a 201 voluntary agreement because of psychosis and suicidal ideations. Chief Complaint "Hey, what did you want to talk about?" Review of Systems Notes Constitutional: reports restlessness he perceives to be related to withdrawal Cardiovascular: denied Respiratory: denied Gastrointestinal: denied Neurological: denied Psychiatric: denies symptoms other than stated above Total of at least 10 systems reviewed, pertinent positives as above and in HPI. Sleep Information Total Hours of Sleep: 5 Sleep Comments: pt given vistaril per rn. pt appered to sleep @0100 and thereafter. pt on q-15 minute checks Meal Information Percent Meal Consumed - Breakfast: 100 Percent Meal Consumed - Lunch: 100 Percent Meal Consumed - Dinner: 100 Nutrition Comment: pt. reports emesis after eating 50% of lunch Medication Trials . Subjective Subjective Patient was seen & assessed and interval progress reviewed with nursing and social work. Staff report the patient has continued to participate in group programming. Numerous resources have been explored in attempts to offer transportation assistance to the patient, without a positive result. Patient has indicated to staff he will figure out transportation on his own and that this is not a concern for him. While patient has reported some ongoing delusions, he is far less preoccupied with these beliefs and they no longer appear to be directing his behavior. Pt was seen today to assess progress since admission. He reports improvement in withdrawal symptoms, though did admit frustration as he was unable to receive a dose of clonidine earlier in the day due to BP below parameters. Pt is continuing to report intermittent anxiety. He states that he is agreeable with discharge tomorrow, and when asked about transportation/aftercare he states "I'll figure it out one way or another, I'm not worried about it." Pt did state, "I'm still having the same problem, but no one's going to believe me." He did indicate that he was referring to his parasites, but did admit that he was not as preoccupied by this and did not feel that it would impact his ability to keep himself safe. Pt denied suicidal and homicidal ideation, and reported feeling comfortable with aftercare arrangements. He did indicate that he is aware that, per outpatient psychiatric office in [place], referral for outpatient treatment can only occur on [id number]. Pt denied other needs or concerns today. Medication Trials . Physical Exam Psychiatric Orientation: alert, oriented x 3 and cooperative (superficially) Apperance: appropriately dressed, + disheveled (hygiene appears adequate; hair is long and unkempt) and appeared stated age Eye Contact: + fair eye contact Motor Behavior: steady gait and station and no abnormal motor movements Speech: normal rate/rhythm/volume of speech Affect: + blunted affect Mood: no depressed mood ("things are fine") Thought Process: goal directed thought process and clear/coherent thought process Thought Content: + delusions (continues to believe he has parasites on him, though less focused on this) Suicidal Thoughts: denies suicidal thoughts Homicidal Thoughts: denies homicidal thoughts Hallucinations: + tactile hallucinations (continues to report that he has parasites; likely strongly fixed delusions); no auditory hallucinations and no visual hallucinations Cognition: attention grossly intact and language grossly intact Insight: + fair insight Judgement: + fair judgement Vital Signs (Past 24 Hours) Last Vital Signs Temp 36.7 C 08/04/19 06:42 Pulse 88 08/04/19 09:53 Resp 18 08/04/19 06:42 BP 108/68 08/04/19 09:53 Pulse Ox 95 07/28/19 17:40 Results & Data ([facility]) Current Inpatient Medications Current Inpatient Medications: Current Inpatient Medications Acetaminophen (Tylenol) 650 mg PO Q4H PRN PRN Reason: Headache or Minor Fever Stop: 08/27/19 15:04 Last Admin: 08/03/19 20:48 Dose: 650 mg Documented by: Al Hydrox/Mg Hydrox/Simethicone (Maalox) 30 ml PO Q4H PRN PRN Reason: GI Upset Stop: 08/27/19 15:04 Last Admin: 08/03/19 22:06 Dose: 30 ml Documented by: Benztropine Mesylate (Cogentin) 0.5 mg PO Q4H PRN PRN Reason: Anesthesia Stop: 09/01/19 11:04 Last Admin: 08/03/19 23:35 Dose: 0.5 mg Documented by: Bismuth Subsalicylate (Kaopectate) 15 ml PO PRN PRN PRN Reason: Loose Stool Stop: 08/27/19 15:04 Clonidine HCl (Catapres) 0.1 mg PO Q2H PRN PRN Reason: For any 2 symptoms Stop: 08/31/19 09:13 Last Admin: 08/03/19 18:17 Dose: 0.1 mg Documented by: Haloperidol (Haldol) 5 mg PO Q6 PRN PRN Reason: psychosis/agitation Stop: 08/27/19 15:34 Last Admin: 08/03/19 22:06 Dose: 5 mg Documented by: Hydroxyzine HCl (Vistaril) 25 mg PO Q4H PRN PRN Reason: Anxiety Stop: 08/27/19 15:04 Last Admin: 08/01/19 18:04 Dose: 25 mg Documented by: Hydroxyzine HCl (Vistaril) 50 mg PO HSZ PRN PRN Reason: Insomnia Stop: 08/27/19 15:04 Last Admin: 08/03/19 23:33 Dose: 50 mg Documented by: Ibuprofen (Motrin) 600 mg PO Q6H PRN PRN Reason: Pain Stop: 09/01/19 10:47 Last Admin: 08/03/19 12:20 Dose: 600 mg Documented by: Magnesium Hydroxide (Milk Of Magnesia) 30 ml PO DAILY PRN PRN Reason: Constipation Stop: 08/27/19 15:04 Nicotine Polacrilex (Nicorette 2mg) 1 piece MT PRN PRN PRN Reason: nicotine cravings Stop: 08/27/19 16:28 Last Admin: 08/04/19 11:25 Dose: 1 piece Documented by: Olanzapine (Zyprexa) 20 mg PO HS SUZI Stop: 08/31/19 21:59 Last Admin: 08/03/19 20:40 Dose: 20 mg Documented by: Olanzapine (Zyprexa) 5 mg PO QAM PRN PRN Reason: psychosis Stop: 08/31/19 08:59 Last Admin: 08/04/19 10:01 Dose: 5 mg Documented by: Ondansetron HCl (Zofran Odt) 4 mg PO Q6H PRN PRN Reason: Nausea Stop: 09/01/19 10:47 Last Admin: 08/03/19 17:08 Dose: 4 mg Documented by: Sertraline HCl (Zoloft) 50 mg PO QAM SUZI Stop: 08/31/19 09:14 Last Admin: 08/04/19 08:45 Dose: 50 mg Documented by: Sodium Chloride (Gosper Nasal) 1 - 2 sprays NA PRN PRN PRN Reason: Nasal Dryness/Congestion Stop: 08/27/19 15:04 Trazodone HCl (Desyrel) 150 mg PO HS PRN PRN Reason: insomnia Stop: 09/01/19 21:59 Last Admin: 08/03/19 20:48 Dose: 150 mg Documented by: Mental Health & Subst Abuse Tx Therapist Name of Therapist: None Commissioning Manager Name of Commissioning Manager: None Post Discharge Appointments Primary Care Physician Name Of Family Doctor: None Contact Information Discharge Address: [address] [place] [id number] Contact Information Comment: Permanent address: [address] [place] [id number]
[2019-08-04] MEDS: haloperidoL 5 MG TAB PO PRN (12:51)
[2019-08-04] MEDS: cloNIDine HCL 0.1 MG TAB PO PRN ×2 (18:05→23:40)
[2019-08-04] MEDS: ONDANSETRON 4 MG OD TAB PO PRN (18:47)
[2019-08-04] MEDS: OLANZapine 20 MG TABLET PO SCH (21:22)
[2019-08-04] MEDS: TRAZODONE HCL 50 MG TAB PO PRN (21:23)
[2019-08-04] MEDS: ALUMINUM/MAGNESIUM SUSP 30 ML UDC PO PRN (21:24)
[2019-08-05] MEDS: SERTRALINE HCL 50 MG TABLET PO SCH (08:43)
--- NOTE | 2019-08-05 10:50 | Discharge Summary ---
Date of Service August 05, 2019 History of Present Illness The patient is a 44-year-old male present presented to the emergency department, apparently after alighting from a long distance bus in [place] while en route to an unspecified destination. Reportedly, the patient's behavior on the bus had been such that other persons on the bus were concerned, and the patient was brought to the emergency department at [facility] for a psychiatric evaluation. In the emergency room, the patient reportedly expressed suicidal thoughts that included his either jumping in front of a car or jumping off a bridge. He stated that he has been dealing with mental health issues for many years and that his emotional stress has gotten worse over the last few weeks. The patient also reports that he has not taken any of his psychiatric medications for the last week since being discharged from a chemical dependency [facility] house known as the [facility] in [place]. The patient's claim is that he was released from the program and was "put on a bus" that he believes was destined [place] take him [place] "the [place]". He denies any recent drug or alcohol usage, but freely acknowledges a longstanding history of the abuse of a number of chemical substances, including heroin, cocaine, methamphetamine, hallucinogens, and other drugs of abuse. Patient also reports that he has, in the past, been given a diagnosis of bipolar disorder and has a history of multiple psychiatric hospitalizations, according to the patient. He does report smoking tobacco. His primary complaint is that, for the past 2 years or more he has been "infested" by sentient insects that he describes as conspiring, under the direction of a "mastermind" to infest him, bite him continuously throughout his body, and suck his blood and "life force" out of him. More specifically, of the patient says that these bugs can choose to be invisible, may originally resemble a larva, and then take a number of different forms. He says that he has never seen one, but believes that all of the insects in question are female. The patient attributes the current COVID-19 pandemic to these same malevolent insects, and that COVID-19 patients are not actually dying of pneumonia but, instead, infestation by these sentient insects who, among other things, enter the lungs of persons diagnosed with COVID-19 through the nasal cavities and block off the airways so that the victim " is a horrible ." Patient further believes that there was come until fairly recently, and insect who had taken pity on him and had tried to protect him from the other insects. He tells us that the protective insect was named "Micheline," but she and he is no longer able to enjoy her protection. The patient reports decreased sleep that he attributes to being continuously bitten and threatened by the insects, low energy and fatigue that he attributes to having his blood sucked by the insect (although, he also says that he has always had difficulty with fatigue and low energy; i.e., for most of his life). He also complains of poor appetite, anhedonia, apathy, and poor concentration. The patient's toxicology screen at the time of admission was negative for drugs of abuse. His reported that he has not been using drugs recently, and when asked specifically about synthetic drugs that might not appear on a tox screen, the patient assured us that he has not used any drugs at all. Physical Exam Psychiatric Orientation: alert, oriented x 3 and cooperative Apperance: appropriately dressed and appropriately groomed Eye Contact: + fair eye contact Motor Behavior: steady gait and station and no abnormal motor movements Speech: normal rate/rhythm/volume of speech Affect: euthymic affect "It's good. A lot better." Thought Process: goal directed thought process Thought Content: reality based without delusions Suicidal Thoughts: denies suicidal thoughts Homicidal Thoughts: denies homicidal thoughts Hallucinations: no auditory hallucinations Cognition: recent memory grossly intact, remote memory grossly intact, attention grossly intact and language grossly intact Estimated Intelligence: average estimated intelligence Insight: + fair insight Judgement: + fair judgement Vital Signs (Past 24 Hours) Last Vital Signs Temp 37 C 08/05/19 09:45 Pulse 87 08/05/19 09:45 Resp 18 08/05/19 09:45 BP 169/89 H 08/05/19 09:45 Pulse Ox 95 08/05/19 09:45 Principal Diagnosis Bipolar 1 Disorder Psychiatric Data During the course of hospitalization the patient was offered various modalities of psychiatric treatment and education. Although at first somewhat reluctant, he participated in individual, group, and activity therapies where he focused on drug abstinence strategies, and individual coping strategies. He was also started on psychiatric medications, namely olanzapine and sertraline. He was also placed on an opioid withdrawal protocol, and by the day of discharge this was considered resolved. (He continued to occasionally mention "withdrawal symptoms" on the day prior to discharge, and received as needed clonidine, but the patient, on those occasions, did not appear to be in any distress and his blood pressure had returned to normal.) His dose of olanzapine was titrated to olanzapine 20 mg by mouth at bedtime, and he was also placed on sertraline 50 mg for depression and anxiety. The patient exhibited fairly florid psychotic features with a fairly elaborate paranoid delusional system, but the the patient's delusional thought content began to be less intrusive on medication and eventually he did not mention them spontaneously, and there was no persistent evidence that these believes were continuing to influence his behavior or decision making processes. He also reported that he was not experiencing any perceptual disturbances such as auditory hallucinations. He was generally pleasant and cooperative in the milieu, although sometimes he appeared to be drug seeking and often requested as needed medications. The suicidal thoughts that he presented with also resolved, and by discharge the patient was consistently and convincingly denies suicidal thoughts and was also focused on his future. During his discharge evaluation, he ask that the staff be thanked for all the help they gave him during his stay. He said that he was looking forward to returning to [place], [place] where he plans to live with his elderly grandfather. The patient's mother is also temporarily staying with the grandfather who has recently had a number of serious health problems. The patient acknowledges that he and his mother do not always get along, but he spontaneously states that he recognizes that it will be in the best interest of his own health and his grandfather's health if he works hard to avoid conflict with his mother. He also notes that his mother has indicated that once he is settled back in [facility] she will return to her own home, located elsewhere in [place]. Day of Discharge Assessment On the day of discharge the patient was found to be appropriately dressed and groomed. He was fully cooperative with the discharge assessment and was generally affable and pleasant. His speech was delivered at a normal rate and volume, and was also spontaneous. There was no gait disturbance noted. The patient described his mood as being "good," and "much better." His affect was fairly bright. The patient's thought processes demonstrated tight associations. His thought content was devoid of any identified delusional content, and he spoke about his love and respect for his grandfather and notes that he is happy about the opportunity to be able to help care for the elderly man, within the context of the degree to which his grandfather has helped him in the past. The patient reports that he is not experiencing any "voices" and does not appear to be responding to internal stimuli. He convincingly reports that he is having no further thoughts of suicide, and is able to discuss his safety plan for community reentry. He tells us that he has a recent history of going to emergency rooms if he is having suicidal or other self destructive thoughts. He notes that he feels that olanzapine at bedtime is helping him in several ways. Specifically, he reports that it is helping him sleep and he also says that he knows that it is helping him to "think more clearly." Further, he indicates th at he has been tolerating sertraline well, and believes that it has also helped improve his mood. He expresses full intent to adhere with his medications on an outpatient basis and inquires regarding how we will help him secure a supply of his medications pending his upcoming outpatient appointment. Transition of Care Transition Of Care Record: was reviewed with the patient Advance Directives Advance Directives Information Provided: Yes Advance Directives: No Mental Health Advance Directive: No Advance Directives on File: No Living Will: No Power of Scrap Handler: No Advance Directives Reason:: Declines as Mental Health Visit. Risk Factors Assessment Male. History of previous suicide attempts. Psychiatric diagnosis. History of psychosis. Extensive history of drug abuse. These factors are mitigated by the patient's reported commitment to psychiatric treatment, his insight into his need for treatment, and the fact that he has support in the community, in the form of his grandfather. Male: Yes : Yes Do You Have Access To A Gun?: No Health Problems: No Mental Health Diagnoses: Yes Substance Use Disorders: Yes Previous Attempt: Yes Previous Attempt; Highly Lethal: No Previous Attempt; Planned: No Previous Attempt; Didn't Tell Anyone: Yes Family History of Suicide: No Previous Psychiatric Hospitalization: Yes Hopelessness: No Smoker: Yes Protective Factors Assessment Mormonism Beliefs: No : No Responsible for Young Children: No Employed: No Stable Relationships: No Supportive Family: No (Patient indicates that he had formerly lived with his mother and paternal grandfather, but indicates today that they were not supportive) Good Rapport with Provider: No Absence of Any Risk Factors Above: No Tobacco Cessation at Discharge Tobacco Cessation Medication Prescribed at Discharge: Offered & Prescribed Antipsychotic Medications The patient is being treated for a psychotic illness. Olanzapine is also used as a mood stabilizer in this case. Total Time Total Time Spent: Greater Than 30 Minutes Total Time Includes: Examination of the patient, Discharge Planning, Medication Reconciliation and Communication with other providers Discharge Data Lab Results 07/28/19 07/28/19 07/28/19 13:02 13:02 13:07 WBC 8.55 RBC 4.63 L Hgb 13.5 L Hct 39.6 L MCV 85.5 MCH 29.2 MCHC 34.1 RDW Std Deviation 42.1 RDW Coeff of Sherice 13.4 Plt Count 268 MPV 9.2 Immature Gran % (Auto) 0.2 Neut % (Auto) 65.5 Lymph % (Auto) 21.4 Madison % (Auto) 10.6 Eos % (Auto) 1.8 Baso % (Auto) 0.5 Immature Gran # (Auto) 0.02 Neut # (Auto) 5.60 Lymph # (Auto) 1.83 Madison # (Auto) 0.91 H Eos # (Auto) 0.15 Baso # (Auto) 0.04 Sodium Potassium Chloride Carbon Dioxide Anion Gap BUN Creatinine Est Cr Clr Drug Dosing Est GFR ( Amer) Est GFR (Non-Af Amer) BUN/Creatinine Ratio Glucose Fasting Glucose Calcium Total Bilirubin AST ALT Alkaline Phosphatase Total Protein Albumin Globulin Albumin/Globulin Ratio Triglycerides Cholesterol LDL Cholesterol, Calc VLDL Cholesterol, Calc HDL Cholesterol Cholesterol/HDL Ratio TSH Urine Color Yellow Urine Appearance Clear Urine pH 5.5 Ur Specific [place] 1.026 Urine Protein Negative Urine Glucose (UA) Negative Urine Ketones Trace H Urine Blood Negative Urine Nitrite Negative Urine Bilirubin Negative Urine Urobilinogen Negative Ur Leukocyte Esterase Negative Salicylates Urine Opiates Screen Neg Ur Methadone, Qual Neg Acetaminophen Urine Barbiturates Neg Ur Phencyclidine (PCP) Neg U Amphetamin/Meth Scrn Neg MDMA (Ecstasy) Screen Neg U Benzodiazepines Scrn Neg Ur Cocaine Metabolite Neg U Marijuana (THC) Screen Neg Ethyl Alcohol mg/dL 07/28/19 07/28/19 07/28/19 13:07 13:07 13:07 WBC RBC Hgb Hct MCV MCH MCHC RDW Std Deviation RDW Coeff of Sherice Plt Count MPV Immature Gran % (Auto) Neut % (Auto) Lymph % (Auto) Madison % (Auto) Eos % (Auto) Baso % (Auto) Immature Gran # (Auto) Neut # (Auto) Lymph # (Auto) Madison # (Auto) Eos # (Auto) Baso # (Auto) Sodium 139 Potassium 3.9 Chloride 109 H Carbon Dioxide 25 Anion Gap 5.0 BUN 22 H Creatinine 0.85 Est Cr Clr Drug Dosing 114.7 Est GFR ( Amer) 124.6 Est GFR (Non-Af Amer) 107.5 BUN/Creatinine Ratio 25.5 H Glucose 121 H Fasting Glucose Calcium 8.6 Total Bilirubin 0.4 AST 49 H ALT 26 Alkaline Phosphatase 77 Total Protein 7.4 Albumin 3.8 Globulin 3.6 Albumin/Globulin Ratio 1.1 Triglycerides Cholesterol LDL Cholesterol, Calc VLDL Cholesterol, Calc HDL Cholesterol Cholesterol/HDL Ratio TSH 0.490 Urine Color Urine Appearance Urine pH Ur Specific [place] Urine Protein Urine Glucose (UA) Urine Ketones Urine Blood Urine Nitrite Urine Bilirubin Urine Urobilinogen Ur Leukocyte Esterase Salicylates 4.3 Urine Opiates Screen Ur Methadone, Qual Acetaminophen < 2 L Urine Barbiturates Ur Phencyclidine (PCP) U Amphetamin/Meth Scrn MDMA (Ecstasy) Screen U Benzodiazepines Scrn Ur Cocaine Metabolite U Marijuana (THC) Screen Ethyl Alcohol mg/dL < 3.0 07/31/19 08:18 WBC RBC Hgb Hct MCV MCH MCHC RDW Std Deviation RDW Coeff of Sherice Plt Count MPV Immature Gran % (Auto) Neut % (Auto) Lymph % (Auto) Madison % (Auto) Eos % (Auto) Baso % (Auto) Immature Gran # (Auto) Neut # (Auto) Lymph # (Auto) Madison # (Auto) Eos # (Auto) Baso # (Auto) Sodium Potassium Chloride Carbon Dioxide Anion Gap BUN Creatinine Est Cr Clr Drug Dosing Est GFR ( Amer) Est GFR (Non-Af Amer) BUN/Creatinine Ratio Glucose Fasting Glucose 105 H Calcium Total Bilirubin AST ALT Alkaline Phosphatase Total Protein Albumin Globulin Albumin/Globulin Ratio Triglycerides 104 Cholesterol 161 LDL Cholesterol, Calc 90 VLDL Cholesterol, Calc 21 HDL Cholesterol 50 Cholesterol/HDL Ratio 3 TSH Urine Color Urine Appearance Urine pH Ur Specific [place] Urine Protein Urine Glucose (UA) Urine Ketones Urine Blood Urine Nitrite Urine Bilirubin Urine Urobilinogen Ur Leukocyte Esterase Salicylates Urine Opiates Screen Ur Methadone, Qual Acetaminophen Urine Barbiturates Ur Phencyclidine (PCP) U Amphetamin/Meth Scrn MDMA (Ecstasy) Screen U Benzodiazepines Scrn Ur Cocaine Metabolite U Marijuana (THC) Screen Ethyl Alcohol mg/dL Hospital Course (1) Bipolar 1 disorder, mixed: 07/29/2019 -The patient was admitted to the locked inpatient psychiatric unit at [facility]. -He is being observed on suicide precautions. -The patient is being encouraged to participate in individual, group, and activity therapies as a way of improving his coping strategies. -Begin Zyprexa 10 mg at bedtime. Material risks and anticipated benefits of Zyprexa, including, but not limited to metabolic syndrome and its components were reviewed with the patient and he indicated understanding. 07/29 -Increase olanzapine to 15 mg at bedtime, and add a as needed dose. FLP and FG ordered tomorrow for monitoring on an atypical antipsychotic. -Attempt to get collateral information, either from family or [facility]cf[facility] house staff. Unclear if he has outpatient providers. -Continue private room due to psychosis. May attend groups as able to tolerate. -History of violence with active felony aggravated assault charges, as well as simple assault and harassment. We will attempt to coordinate with his contracts attorney, as he missed a court date recently. 07/30 -Continue olanzapine; FG 105, FLP normal. 07/31 -Increase olanzapine to 20 mg at bedtime and continue as needed's. Continue to work on healthy coping skills. -Initiate sertraline 25 mg daily to target mood and anxiety symptoms, and increase to 50 mg daily tomorrow if well tolerated. Monitor for mood destabilization. -Patient continues to refuse a family meeting with his grandfather, but states he plans to go there at discharge, although has no transportation. Encouraged him to start considering his supports (indicates he has some friends in the [place] area). -Patient will need referral for outpatient therapy and psychiatric care (indicates plan to return to [facility]). 08/01 - Continue olanzapine 20mg at bedtime; patient requesting trazodone for sleep as well - will order 150mg qHS (pt previously taking as much as 250mg). - Continue sertraline 50mg qAM - Pt continues to state his supports are unable to participate in a family meeting, as grandfather is reportedly sick - Attempting to coordinate aftercare in the [place] area 08/02 -Continue current medications and plan. 08/03 - Continue current treatment plan - patient continues to decline family meeting - Continues to verbalize delusional thoughts regarding parasites; however, they do not appear to be directing his decision-making - Anticipate planned discharge tomorrow morning, which will allow our social work team to coordinate with possible outpatient psychiatric offices to reach out to patient for aftercare. 08/04 -The patient tells us that he feels ready for discharge, and notes that he feels that olanzapine and sertraline at the current dosages are helping him a great deal. He also says that he has been sleeping better with the addition of trazodone 150 mg at bedtime, sometimes supplemented with hydroxyzine. -He does not spontaneously voice any delusional thoughts and it appears that any residual delusional thoughts are not influencing his behavior, nor are they, if present, influencing his decision-making -The patient is to be discharged today. He convincingly assures us that he plans to adhere with his prescribed medications on an outpatient basis. These will include olanzapine 20 mg at bedtime, sertraline 50 mg in the morning, and trazodone 150 mg at bedtime, along with as needed hydroxyzine and clonidine (2) Suicidal ideations: 07/29/2019 -Patient reports that he has had thoughts of jumping in front of a car or jumping off a bridge as a way of ending the "torture" that he feels that he is experiencing as a function of his delusions. -Today, he expresses some ambivalence about being suicidal and now seems to be talking about it as something that he might resort to in the not too distant future if his circumstances do not improve. -At this point, inpatient psychiatric hospitalization is the least intensive and least restrictive level of care consistent with the patient's clinical safety needs. There is a past history of suicide attempts, and the patient's emotional lability coupled with the degree to which he is clearly distressed by his belief that he has been continuously harassed and exploited by sentient insect, under the control of an "evil mastermind" currently places him at imminent risk outside the safety and structure of a psychiatric hospital setting. 08/01 - Pt denies SI today, but reports worsening mood with withdrawal symptoms 08/03 - Continues to report resolution of SI; reporting improvement of withdrawal symptoms - Pt denies any safety concerns related to his anticipated discharge tomorrow 08/04 -The patient continues to report that his suicidal thoughts have resolved and that he is not experiencing any thoughts of self-harm. -Today, he is able to independently describe his safety plan for community reentry, and notes that in recent years he has been able to access emergency services through hospital emergency department when having thoughts of self-harm or other thoughts that may represent danger. (3) Opiate withdrawal: Continue clonidine protocol, and use of Kaopectate, acetaminophen, milk of magnesia, ibuprofen, and ondansetron as needed. 08/04 -The patient offers no complaints of opioid withdrawal today. We are considering this problem resolved. (4) Substance abuse: 07/29/2019 -The patient is not considered to be a fully reliable court reporter. However, he does freely acknowledges that he has a long history of the abuse of multiple chemical substances. He tells us that his drug of choice is heroin, but he is also abused stimulants such as methamphetamine and cocaine, as well as marijuana, hallucinogens and others. -Today, he voices an intent to maintain abstinence from drugs of abuse, but then rationalizes his use by saying "if you were going through the things I go through you would use drugs to!" -We will provide chemical dependency education services during the hospital, and will consider this need as part of our ongoing aftercare planning. 08/04 -The patient has focused on his chemical dependency abstinence efforts in individual and group therapies. He tells us that he feels that he has developed improved coping strategies and reduce his commitment to sustained abstinence. -He has been provided information regarding community self-help groups such as Narcotics Anonymous. (5) Opiate abuse, continuous: History of heroin use, states he was prescribed Suboxone while living in [place], from a doctor in [place], but ran out of it after he was discharged from his [facility] due to treatment noncompliance. We have requested records from the [facility] to clarify past treatment and diagnoses. Mental Health & Subst Abuse Tx Psychiatrist Name of Psychiatrist: [facility] Psychiatrist's Psychiatric Appointment Comment: [address], [place] C[place] Please call to schedule Psychiatrist Release of Information: Obtained, Reviewed and Signed Therapist Name of Therapist: [facility] Therapist's Therapy Appointment Comment: [address], [place] Please call to schedule Therapist Release of Information: Obtained, Reviewed and Signed Last Turner Name of Last Turner: None Post Discharge Appointments Primary Care Physician Name Of Family Doctor: None Smoking Cessation Counseling Tobacco Cessation Medication Prescribed at Discharge: Offered & Prescribed Tobacco Cessation Counseling: Offered and Refused Contact Information Discharge (grandfather's number) Discharge Address: [address] [place] [address] Contact Information Comment: Permanent address: [address] [place] [address] Discharge Plan Discharge Items Patient Disposition: Home - Self-Care Reason For Visit: PSYCHOSIS NOS Discharge Diagnosis: Bipolar I Disorder Activity: Resume your previous activity Non-emergency contact: Psychiatrist Call non-emergency contact if: you have any medication questions, your symptoms worsen and your pain is not controlled Follow-up/Referrals: PCP,NO [Primary Care Provider] - Diet: Regular Addtl Attending Provider Instructions: SPECIAL CARE INSTRUCTIONS: 1. Follow through with your scheduled aftercare appointments. If unable to keep an appointment, please call to reschedule. 2. Take your medication only as prescribed. Medication should not be changed or stopped without the approval of your doctor. In the event of worsening symptoms or concerns about side effects, contact your doctor immediately. 3. Utilize new healthy coping skills, anger management skills, and stress management skills learned during your hospitalization. Journal feelings and process them with a support person. Identify stressors or situations that may result in relapse, deterioration or inappropriate behaviors and develop a plan to deal with those issues. 4. If your coping skills are ineffective and you are in crisis, contact your outpatient providers for direction. If unable to reach your providers, please call the CAN HELP LINE AT or go to the closest Emergency Room. 5. Avoid alcohol and un-prescribed drugs. 6. You have been provided with the Mental Health Advance Directives Pamphlet for your review. AFTERCARE APPOINTMENTS: * Please call your insurance company prior to your scheduled appointment to confirm your aftercare providers are covered. Take your insurance information to your otto ointments. WHO TO CALL AND WHEN: Medical Emergencies: For questions or emergencies related to your hospital stay, please contact the Inpatient Behavioral Health Unit at [phone]. A nurse clinician is on-call 10/11 for the [facility] for emergencies At any time you feel your situation is an emergency, you may also call 911 immediately. Your Doctors Instructions noted above were prepared by provider Aris Lopes MD. Pending Studies at Discharge: No Stand-Alone Forms: My [facility], Smoking Cessation, Suicide Prevention Resources Medications and DC Order Prescriptions: New clonidine HCl 0.1 mg Tablet 0.1 mg PO BID PRN (Reason: drug cravings) Qty: 30 RF: 1 trazodone 50 mg Tablet 150 mg PO HS PRN (Reason: Sleep) Qty: 30 RF: 0 nicotine (polacrilex) [Nicorelief] 2 mg Gum 1 piece of gum MT PRN PRN (Reason: Nicotine Cravings) Qty: 100 RF: 3 sertraline 50 mg Tablet 50 mg PO QAM Qty: 30 RF: 0 olanzapine [Zyprexa] 20 mg Tablet 20 mg PO HS Qty: 30 RF: 0 hydroxyzine HCl 25 mg Tablet 50 mg PO HSZ PRN (Reason: Sleep) Qty: 30 RF: 1 No Action No Known Home Medications RF: 0 Discharge Orders: Discharge Order (Routine); Ordered 08/05/19 Ordered By: Aris Lopes Admission Data Admit Date/Time: 07/28/19 15:05 Attending Provider: Aris Lopes Admit Provider: Tomasa Smith Primary Care Provider: PCP,NO Other Interventions: Discharge Summary Assessment (RN) Last Done: 08/05/19 09:45 PSY Interdisciplinary Discharge Planning Last Done: 08/05/19 10:18 Coding [place] [address] D/C day mgmt > 30 min Patient Type Established History Expanded Problem Focused Exam Expanded Problem Focused Medical Decision Making Moderate Complexity Diagnoses Bipolar 1 disorder, mixed F31.60 Suicidal ideations R45.851 Opiate withdrawal F11.23 Substance abuse F19.10 Opiate abuse, continuous F11.10 Time Spent (min) 60
[2019-08-05] MEDS ORDERED: DESTROY THIS MEDICATION ONE (11:01)
== END 2019-08-05 11:50 | disposition home or self-care (01) | DRG 885 ==
LOC: ED 12:40 → 3S 15:05